=== PATIENT | female | born 1960 | race Caucasian/White ===

== ENCOUNTER → 2017-11-23 07:56 | Outpatient (CLI) | payer OTHER, SELFPAY ==
[2017-11-23 12:18] LABS: ALT 29 U/L (12-78); AST 13 U/L (15-37); Albumin 3.7 g/dL (3.4-5.0); Alkaline Phosphatase 71 U/L (46-116); Anion Gap 6.5 mmol/L (3-11); BUN 20 mg/dL (7-18); Bilirubin, Total 0.5 mg/dL (0.2-1.0); CO2 29.5 mmol/L (21.0-32.0); CREATININE 0.63 mg/dL (0.55-1.02); Calcium 8.9 mg/dL (8.5-10.1); Chloride 104 mmol/L (98-107); Cholesterol 198 mg/dL (50-200); Glucose 98 mg/dL (70-100); HDL Cholesterol 83 mg/dL (40-60); LDL CHOLESTEROL 106 mg/dL (<100); Potassium 4.2 mmol/L (3.5-5.1); Sodium 140 mmol/L (136-145); Total Protein 6.9 g/dL (6.4-8.2); Triglyceride 38 mg/dL (30-150)
== END ==
DX: E78.5 Hyperlipidemia, unspecified (principal); F32.9 Major depressive disorder, single episode, unspecified; F41.9 Anxiety disorder, unspecified
CPT/HCPCS: 36415; 80053; 80061; 83721

== ENCOUNTER → 2017-11-23 11:34 | Outpatient (REF) | payer OTHER, SELFPAY ==
--- NOTE | 2017-11-23 09:30 | PAPFT_PTH ---
PATIENT: Joanna Norton LOC: [facility] U#:[id number] AGE/SX: 65/F ROOM: RE11/23/[address]: DERRICK Leone : 1960 BED: DIS: SPEC #: [id number] RECD: 11/23/17 12:48 STATUS: KATARZYNADeandre REAle #: [id number] REHANA: 11/23/17 09:[address]: Petra Shay DEPT: [facility] Cytology RECD BY: Santa Booker ENTERED: 11/23/17 12:48 SP TYPE: PAPFT OTHR DR: Layne Zavaleta APRN Tissues: 1 - CX/ENDOCX FOR PAP SMEARS Procedures: PAP THIN PREP/UVM Screening Comments: [id number] (UNSATISFACTORY FOR EVALUATION)
== END ==
LOC: LBN 11:34
PROVIDERS: Visit Provider Nurse Practitioner Family
DX: Z12.4 Encounter for screening for malignant neoplasm of cervix (principal); Z11.51 Encounter for screening for human papillomavirus (HPV)
CPT/HCPCS: 88142; 87624

== ENCOUNTER 2017-12-23 08:55 | Outpatient (REF) | payer OTHER, SELFPAY ==
--- NOTE | 2017-12-23 08:30 | PAPFT_PTH ---
PATIENT: Joanna Norton LOC: [facility] U#:[id number] AGE/SX: 57/F ROOM: RE12/23/[address]: DERRICK Leone : 1960 BED: DIS: 12/23/2017 SPEC #: [id number] RECD: 12/23/17 13:12 STATUS: VICKI AJ #: [id number] REHANA: 12/23/17 08:[address]: Petra Shay DEPT: [facility] Cytology RECD BY: Santa Booker ENTERED: 12/23/17 13:13 SP TYPE: PAPFT OTHR DR: Layne Zavaleta APRN Tissues: 1 - CX/ENDOCX FOR PAP SMEARS Procedures: PAP THIN PREP/UVM Screening HPV DNA PROBE Comments: [id number]
== END 2017-12-23 09:15 ==
LOC: LBN 08:55
PROVIDERS: Visit Provider Nurse Practitioner Family
DX: Z12.4 Encounter for screening for malignant neoplasm of cervix (principal); Z11.51 Encounter for screening for human papillomavirus (HPV)
CPT/HCPCS: 88142; 87624

== ENCOUNTER 2018-01-31 08:08 | Outpatient (CLI) | payer OTHER, SELFPAY ==
--- NOTE | 2018-01-31 08:15 | DI.CT_ITS ---
SYMPTOM/DIAGNOSIS: CHECK STONE BURDEN, CALCULUS OF KIDNEY, N20.[address]: CT scan of the abdomen and pelvis was performed according to the renal colic protocol. Comparison examination is 08/31/13. The visualized lung bases are clear. The lack of IV contrast does limit evaluation of the abdominal and pelvic organs. The patient is status post cholecystectomy. No biliary ductal dilatation is seen. The unenhanced liver, spleen, pancreas and adrenal glands are unremarkable. In the right kidney, there is a 2 mm. non obstructing stone in the mid pole. In the lower pole, there is a collection of calculi present, at least 7 individual calculi are identified. They measure in aggregate, 1.2 cm. by 0.8 cm. They are non obstructing. In the left kidney, there is a 2 mm. non obstructing stone in the upper pole. There are two non obstructing stones seen in the mid pole. The larger measuring 0.5 cm., the smaller measuring 0.2 cm. There are three non obstructing stones in the lower pole, the largest measures 0.5 cm. The two smaller measure 0.4 cm and 0.2 cm. No ureterolithiasis is identified. The urinary bladder is intact. No bladder stones are seen. The reproductive organs are unremarkable as visualized. The abdominal aorta is of normal caliber. No significant abdominal or pelvic adenopathy, ascites or pneumoperitoneum is present. The bowel shows no evidence of obstruction or inflammation. No findings to suggest an acute appendicitis are present. There are degenerative changes seen in the spine. IMPRESSION: Bilateral nephrolithiasis.
== END 2018-01-31 08:28 ==
PROVIDERS: Visit Provider Urology
DX: N20.0 Calculus of kidney (principal)
CPT/HCPCS: 74176

== ENCOUNTER 2018-04-05 00:27 | Outpatient (CLI) | payer OTHER, SELFPAY ==
--- NOTE | 2018-04-05 08:16 | DI.MAMMO_ITS ---
SYMPTOM/DIAGNOSIS: SCREENING, Z12.31 MAMMOGRAMS: Mammograms were interpreted according to the usual protocol including computer analysis with CAD system, tomosynthesis and C view imaging. Comparison with prior examinations. Breast density C. No suspicious masses or microcalcifications are seen. There is no definite evidence of malignancy. IMPRESSION: Negative mammogram. Routine screening is recommended. Category I. MQSA ASSESSMENT OF FINDINGS: Negative. Category 1. Patient will receive a letter notifying them of these results. Bi-RADS category C. The breasts are heterogeneously dense, which may obscure small masses.
== END 2018-04-05 00:47 ==
PROVIDERS: Visit Provider Nurse Practitioner Family
DX: Z12.31 Encounter for screening mammogram for malignant neoplasm of breast (principal)
CPT/HCPCS: 77063; 77067

== ENCOUNTER 2018-06-01 14:54 | Outpatient (CLI) | payer OTHER, SELFPAY ==
--- NOTE | 2018-06-01 14:49 | DI.RAD_ITS ---
SYMPTOM/DIAGNOSIS: ACUTE INJURY, PAIN LEFT LITTLE FINGER: Three views. No acute fracture or dislocation is seen. No radiopaque foreign bodies are seen in the soft tissues. IMPRESSION: No acute abnormality.
== END 2018-06-01 15:14 ==
PROVIDERS: Visit Provider Student in an Organized Health Care Education/Training Program
DX: M79.645 Pain in left finger(s) (principal); S69.92XA Unspecified injury of left wrist, hand and finger(s), initial encounter
CPT/HCPCS: 73140

== ENCOUNTER 2018-11-22 10:45 | Outpatient (CLI) | payer OTHER, SELFPAY ==
[2018-11-22 13:39] LABS: ALT 28 U/L (14-59); AST 19 U/L (15-37); Alkaline Phosphatase 78 U/L (46-116); BUN 16 mg/dL (7-18); Bilirubin, Total 0.5 mg/dL (0.2-1.0); CREATININE 0.59 mg/dL (0.55-1.02); Calcium 9.3 mg/dL (8.5-10.1); Chloride 104 mmol/L (98-107); Glucose 89 mg/dL (70-100); Potassium 4.3 mmol/L (3.5-5.1); Sodium 141 mmol/L (136-145); TSH (W/Ref FT4) 1.02 uIU/mL (0.36-3.74); Total Protein 7.5 g/dL (6.4-8.2)
== END 2018-11-22 11:05 ==
DX: F32.9 Major depressive disorder, single episode, unspecified (principal); G47.00 Insomnia, unspecified; R53.83 Other fatigue; Z00.00 Encounter for general adult medical examination without abnormal findings
CPT/HCPCS: 36415; 80053; 84443

== ENCOUNTER 2018-12-06 10:05 | Outpatient (REF) | payer OTHER, SELFPAY ==
--- NOTE | 2018-12-06 09:30 | PAPFT_PTH ---
PATIENT: Joanna Norton LOC: [facility] U#:[id number] AGE/SX: 58/F ROOM: RE12/06/[address]: DERRICK Leone : 1960 BED: DIS: 12/06/2018 SPEC #: [id number] RECD: 12/06/18 12:47 STATUS: VICKI REAle #: [id number] REHANA: 12/06/18 09:[address]: Petra Shay DEPT: [facility] Cytology RECD BY: Santa Booker ENTERED: 12/06/18 12:48 SP TYPE: PAPFT SERGIO DR: Layne Zavaleta APRN Tissues: 1 - CX/ENDOCX FOR PAP SMEARS Procedures: PAP THIN PREP/UVM Screening Comments: [id number]
== END 2018-12-06 10:25 ==
LOC: LBN 10:05
PROVIDERS: Visit Provider Nurse Practitioner Family
DX: Z12.4 Encounter for screening for malignant neoplasm of cervix (principal)
CPT/HCPCS: 88142

== ENCOUNTER 2019-01-25 08:03 | Outpatient (CLI) | payer OTHER, SELFPAY ==
--- NOTE | 2019-01-25 09:12 | DI.RAD_ITS ---
EXAM: XR ABDOMEN FLAT PLATE INDICATION: monitor stone burden, kidney stones, N20.0. COMPARISON: ABDOMEN FLAT PLATE from 08/31/2013 TECHNIQUE: 2D digital imaging was performed. FINDINGS: There is again seen a large stone collection in the inferior pole of the right kidney. There are sto landon again seen in the lower pole of the left kidney. There now appears to be a calcification in the midpole of the left kidney. There are surgical clips in the right upper quadrant of the abdomen like ly reflecting prior cholecystectomy. There is a large amount of stool throughout the colon. IMPRESSION: Bilateral nephrolithiasis.New calcification in the mid pole of the left kidney.
== END 2019-01-25 08:23 ==
PROVIDERS: Visit Provider Urology
DX: N20.0 Calculus of kidney (principal); N28.89 Other specified disorders of kidney and ureter
CPT/HCPCS: 74018

== ENCOUNTER 2019-04-18 01:04 | Outpatient (CLI) | payer BC, SELFPAY ==
--- NOTE | 2019-04-18 07:48 | DI.MAMMO_ITS ---
EXAM: MG MAMMO SCREENING CLINICAL HISTORY: screening TECHNIQUE: Mammograms were interpreted according to the usual protocol including computer analysis w [facility] CAD system, tomosynthesis and C-view imaging. COMPARISON: FINDINGS: Breasts are heterogeneously dense. No dominant mass or clumped microcalcification is identified in e ither breast. Current examination is compared with previous examinations including March 2018 and there has been no gross interval change in appearance in comparison with the previous studies. IMPRESSION: No specific evidence of malignancy at this time. Routine screening examinations are suggested at yea rly intervals in this age group according to the ACS ACR guidelines Category 1, breast density category C
== END 2019-04-18 01:24 ==
PROVIDERS: Visit Provider Nurse Practitioner Family
DX: Z12.31 Encounter for screening mammogram for malignant neoplasm of breast (principal)
CPT/HCPCS: 77063; 77067

== ENCOUNTER 2019-10-02 13:16 | Emergency (ER) | payer BC, SELFPAY ==
[2019-10-02 13:26] VITALS: BP 139/89; PULSE 73; RESP 16; TEMP 36.2; O2SAT 100
[2019-10-02 13:33] LABS: Bilirubin Negative (Negative); Blood Large (Negative); Clarity Cloudy (Clear); Glucose Negative (Negative); Ketones Negative (Negative); Leukocyte Esterase Trace (Negative); Nitrite Negative (Negative); Specific Gravity >= 1.030 (1.005-1.025); Urobilinogen 0.2 EU/dL (Up TO 0.2); pH 5.5 (5-8)
[2019-10-02 13:42] LABS: C & S Indicated? Yes; Epithelial Cells Few HPF (Negative); RBC >50 HPF (0-2)
--- NOTE | 2019-10-02 13:45 | DI.CT_ITS ---
EXAM: CT RENAL COLIC WO CLINICAL HISTORY: LEFT FLANK PAIN. TECHNIQUE: Imaging Protocol: Axial computed tomography images with coronal and sagittal reformatted images were created and reviewed. CONTRAST MATERIAL: Noncontrast COMPARISON: CT CT ABDOMEN PELVIS WO from 01/31/2018 FINDINGS: ABDOMEN: Lung Bases: Normal where visualized. Liver: Normal density. No measurable mass. Gallbladder and biliary tract: Status post cholecystectomy. No radiodense calculus or biliary dilati on. Pancreas: Normal density, no abnormal calcifications or inflammatory process. Spleen: Normal. Kidneys: Normal size, contour and axis. Bilateral renal calculi are again noted, greatest at the lowe r poles. Very faint increased density is seen in the medullary regions of both kidneys, which could i ndicate medullary sponge kidney. There is now moderate left hydronephrosis secondary to a 7 millimet er stone in the upper ureter, just beneath the ureteropelvic junction. No masses seen. Adrenal glands: No masses seen. Abdominal Aorta: Abdominal portion non-dilated. PELVIS: Bladder: Symmetric distention, no gross wall thickening. No stones Bowel: No obstruction or bowel wall thickening. Peritoneal cavity: No ascites, collection or inflammatory response. There is haziness in the mesente leana fat and multiple small lymph nodes, unchanged. Bones: Degenerative disc changes at L5-S1. Schmorl's node at the superior endplate of L4. IMPRESSION: Moderate left hydronephrosis secondary to a 7 millimeter stone in the proximal left ureter. Addition al multiple bilateral renal calculi. RADIATION DOSE DELIVERED: Total DLP DATA REPOSITORY: All CT scans at this facility are submitted to the National Radiology Data Registry (NRDR) Dose Index Registry (DIR) with the [employer] (ACR). RADIATION OPTIMIZATION: All CT scans at this facility use at least one of these dose optimization te chniques: automated exposure control; mA and/or kV adjustment per patient size (includes targeted exa ms where dose is matched to clinical indication); or iterative reconstruction.
--- NOTE | 2019-10-02 14:01 | W.ED.GENAD ---
Discharge Plan Disposition Patient Disposition: HOME Condition: Stable Discharge Details Chief Complaint: FlankPain Clinical Impression: Kidney stone on left side Primary Care Provider: Layne Zavaleta ED Provider: Dori Lindquist Home Meds and New Rx's Prescriptions: New tamsulosin 0.4 mg capsule 0.4 mg PO QHS 7 Days Qty: 7 RF: 0 hydrocodone-acetaminophen 5-325 mg tablet 1 tab PO Q6H PRN (Reason: pain) Qty: 7 RF: 0 No Action cetirizine [Zyrtec] 10 mg tablet 10 mg PO DAILY PRN (Reason: allergy symptoms) Qty: 90 RF: 2 venlafaxine 37.5 mg capsule,extended release 24hr 37.5 mg PO DAILY Qty: 30 RF: 2 Discharge Instructions Instructions: Kidney Stones (ED) Additional Instructions: Strain all urine. Follow-up with Dr. Shine later this week as previously scheduled. Take medications as prescribed. Take hydrocodone with food no driving. Return to the ED immediately for any vomiting, fever, pain not controlled by medications, or any concerns. Referrals: Layne Zavaleta NP [Primary Care Provider] - Travon Shine MD [ [facility] STAFF PHYSICIAN] - Medical Decision Making 59-year-old female presents to the ER complaining of left flank pain which began yesterday worsening today. She reports intermittent in nature and is tolerable upon initial exam. She does have a history of kidney stones and sees Dr. Shine for urology. She states that she has an upcoming appointment on to get a KUB x-ray to evaluate her kidney stones. She has 2 known small passable kidney stones on the left and a large one on the right per patient report. Associated symptoms include nausea, dark urine, and alternating left back pain and left abdominal pain. She denies any fever, chills, vomiting. She took a Tylenol this morning which provided little to no relief. Surgical history includes cholecystectomy, tubal ligation, cataract surgery, past medical history includes anxiety depression, renal calculi, tubular adenoma of colon. 1404: Orders in place including CBC, CMP, urinalysis does show large blood, trace leukocytes, greater than [address] abdomen pelvis without contrast ordered to eval kidney stones. 1 L normal saline ordered and 4 mg Zofran 30 mg Toradol IV. Patient declined Zofran at this time she reports improvement with Toradol IV. 1349: Pulmonary CT results received by Dr. Moody radiologist she reports a 7 mm stone in the left upper ureter with moderate hydro-which is obstructed at this time. Dr. Shine urologist paged. COMPARISON: CT CT ABDOMEN PELVIS WO from 01/31/2018 FINDINGS: ABDOMEN: Lung Bases: Normal where visualized. Liver: Normal density. No measurable mass. Gallbladder and biliary tract: Status post cholecystectomy. No radiodense calculus or biliary dilation. Pancreas: Normal density, no abnormal calcifications or inflammatory process. Spleen: Normal. Kidneys: Normal size, contour and axis. Bilateral renal calculi are again noted, greatest at the lower poles. Very faint increased density is seen in the medullary regions of both kidneys, which could indicate medullary sponge kidney. There is now moderate left hydronephrosis secondary to a 7 millimeter stone in the upper ureter, just beneath the ureteropelvic junction. No masses seen. Adrenal glands: No masses seen. Abdominal Aorta: Abdominal portion non-dilated. PELVIS: Bladder: Symmetric distention, no gross wall thickening. No stones Bowel: No obstruction or bowel wall thickening. Peritoneal cavity: No ascites, collection or inflammatory response. There is haziness in the mesenteric fat and multiple small lymph nodes, unchanged. Bones: Degenerative disc changes at L5-S1. Schmorl's node at the superior endplate of L4. IMPRESSION: Moderate left hydronephrosis secondary to a 7 millimeter stone in the proximal left ureter. Additional multiple bilateral renal calculi. 1504: Spoke with Dr. Shine with urology discussed patient case in details. He states that patient should have an appointment on with him. At this time due to no vomiting and no infection patient is nonseptic appearing she feels it is safe for patient to be discharged home with Flomax and pain medications. I agree with his recommendation at this time. We will send patient home with above-mentioned prescriptions and urine strainer and strict return instructions. HPI General Mode of arrival: ambulatory. Date/Time Provider Initiated Documentation: 10/02/19 13:34. Limitations to Documentation: no limitations. Information obtained by: patient. HPI Narrative: 59-year-old female presents to the ER complaining of left flank pain which began yesterday worsening today. She reports intermittent in nature and is tolerable upon initial exam. She does have a history of kidney stones and sees Dr. Shine for urology. She states that she has an upcoming appointment on to get a KUB x-ray to evaluate her kidney stones. She has 2 known small passable kidney stones on the left and a large one on the right per patient report. Associated symptoms include nausea, dark urine, and alternating left back pain and left abdominal pain. She denies any fever, chills, vomiting. She took a Tylenol this morning which provided little to no relief. Surgical history includes cholecystectomy, tubal ligation, cataract surgery, past medical history includes anxiety depression, renal calculi, tubular adenoma of colon. Related Data Home Medications Medication Instructions Recorded Confirmed cetirizine 10 mg tablet 10 mg PO DAILY PRN #90 tab-cap 12/29/18 10/02/19 venlafaxine 37.5 mg 37.5 mg PO DAILY #30 cap 06/21/19 10/02/19 capsule,extended release 24 hr hydrocodone-acetaminophen 1 tab PO Q6H PRN #7 tab 10/02/19 tamsulosin 0.4 mg PO QHS 7 Days #7 cap 10/02/19 Previous Rx's Medication Instructions Recorded cetirizine 10 mg tablet 10 mg PO DAILY PRN #90 tab-cap 12/29/18 venlafaxine 37.5 mg 37.5 mg PO DAILY #30 cap 06/21/19 capsule,extended release 24 hr hydrocodone-acetaminophen 1 tab PO Q6H PRN #7 tab 10/02/19 tamsulosin 0.4 mg PO QHS 7 Days #7 cap 10/02/19 Allergies Allergy/AdvReac Type Severity Reaction Status Date / Time Sulfa (Sulfonamide Allergy Mild RASH Verified 10/02/19 13:30 Antibiotics) epinephrine Allergy Unknown Verified 10/02/19 13:30 General Stated Complaint: FlankPain FRANCISCA: 3 Review of Systems Narrative: Constitutional: Negative for weight loss, alert and oriented, well groomed, normal body habitus, appears comfortable. HEENT: Denies trauma, headaches, blurry vision, nasal discharge, sore throat, trouble swallowing. Chest: Denies chest pain, palpitations, irregular rhythm, hypertension. Respiratory: Denies Shortness of breath, cough, hemoptysis. GI: Denies abdominal pain, nausea, vomiting, diarrhea, constipation. : Denies dysuria, hematuria, flank pain, rectal bleeding. Neuro: Denies dizziness, blurry vision, weakness, syncope, headache or facial numbness. Hematologic: Denies easy bruising, intolerance to heat or cold, hair loss. [facility] Medical History Anxiety Depression Hx of renal calculi Increased body mass index (BMI) (Acute) Injury of intrinsic muscle of finger (Inactive) Tubular adenoma of colon Surgical History Cataract extraction status, left eye (Resolved ~03/14/18) 03/14/18 [facility] Cholecystectomy Colonoscopy - MAC (04/13/16) Extraction of cataract (~2010) LEFT EYE Ligation of fallopian tube Family History Mother No problems noted. Father Guillain-Pollok Brother Kidney stone Sister No problems noted. Daughter No problems noted. Daughter No problems noted. Social History Smoking/Tobacco Use Status: Never Alcohol Intake: never Drug use: Never Substance use type: does not use Caregiver/Support person: No Household members: spouse Number of Children: 2 Do you need help understanding health information?: Never 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 Pets and animals: cat(s) Sexually active: Yes Do you think of yourself as: straight/heterosexual Current gender identity: female What is your relationship status?: How often do you talk on the phone with friends or family?: once per week How often do you get together with friends or relatives?: decline to answer How often do you attend religious or restoration services?: decline to answer Do you belong to any clubs or organized social groups?: decline to answer Panel score (0-1 are the most socially isolated patients): 1 What type of physical activity do you participate in: decline to answer Duration: decline to answer Frequency: 3-4 times per week Gabby/Sikh: Latter-Day Special gabby needs: No Seatbelt use: always Helmet use: Yes Helmet use: always Drive intox or ride w/intox local [place] truck driver: No Do you feel safe at home: Yes Do you feel safe in your relationship?: Yes Female Reproductive History Menstrual Date of menopause: 03/29/06 History History 4 Para 2 Hx # Term Pregnancies Multiple births Hx # Pregnancies Ectopic pregnancies AB induced Hx Number of Living Children AB spontaneous Exam Narrative Exam Narrative: Constitutional: Alert and oriented x3. Appears stated age. Normal body habitus. Head: Normocephalic, no trauma. Eyes: Pupils PERRLA, Red reflex noted, EOM's intact. Eyelids symmetrical without lesions, discharge, or swelling. ENT: Bilateral TM's WNL, External ear normal to inspection, no mastoid TTP, swelling, or erythema, Nasal turbinates WNL, no nasal discharge. Normal dentition, Posterior pharynx WNL, no exudate. Chest: RRR, Normal S1, S2, distal pulses intact. Resp: Lungs clear to auscultation bilaterally, no wheezes, rales, or rhonchi. Abdomen: Soft nondistended nontender palpation, normoactive bowel sounds all 4 quadrants. No CVA tenderness with palpation. Musculoskeletal: Normal gait, 5/5 strength to all four extremities. Skin: No suspicious rashes or lesions. Capillary refill less than 2 sec. Neurologic: Cranial nerves II-XII intact. Alert and oriented x 3. DTR's intact. Hematologic/Lymphatic: No ecchymosis, no lymphadenopathy. Course Vital Signs Vital signs: Vital Signs Temperature 36.2 C L 10/02/19 13:26 Pulse 73 10/02/19 13:26 Respiratory Rate 16 10/02/19 13:26 Blood Pressure 139/89 10/02/19 13:26 Pulse Oximetry 100 10/02/19 13:26 Temperature 36.2 C L 10/02/19 13:26 Temperature Source Temporal Artery Scan 10/02/19 13:26 Pulse 73 10/02/19 13:26 Respiratory Rate 16 10/02/19 13:26 Respiratory Effort Non-Labored 10/02/19 13:28 Blood Pressure 139/89 10/02/19 13:26 Blood Pressure Position Sitting 10/02/19 13:26 Pulse Oximetry 100 10/02/19 13:26 Oxygen Delivery Method Room Air 10/02/19 13:26 Oxygen Flow Rate 0 10/02/19 13:26 Pain Level 8 10/02/19 13:43 Lab/Test Results Lab/Test Results: 10/02/19 13:23 Urine - Reflex from Ua Urine Culture - Pending Laboratory Tests Range/Units 10/02/19 13:23 Urine Color (Yellow) [place] Urine Clarity (Clear) Cloudy Urine pH (5-8) 5.5 Ur Specific [place] (1.005-1.025) >= 1.030 H Urine Protein (Negative) mg/dL 100 H Urine Ketones (Negative) mg/dL Negative Urine Blood (Negative) Large H Urine Nitrite (Negative) Negative Urine Bilirubin (Negative) Negative Urine Urobilinogen (Up TO 0.2) EU/dL 0.2 Ur Leukocyte Esterase (Negative) Trace H Urine RBC (0-2) HPF >50 H Urine WBC Not Applicable Ur Epithelial Cells (Negative) HPF Few Urine Crystals Not Applicable Urine Bacteria Not Applicable Urine Mucus Not Applicable Ur Culture Indicated? Yes Urine Glucose (Negative) mg/dL Negative
[2019-10-02] MEDS: Ketorolac 30 MG/ML VIAL IVP (14:02)
[2019-10-02] MEDS: Normal Saline 1,000 ML 150 ML IV (14:02)
[2019-10-02] MEDS: Normal Saline Flush 10 ML SYR IVP (14:02)
[2019-10-02 14:06] LABS: Abs Immature Grans 0.02 k/cumm (0.0-0.09); Absolute Basophil Count 0.02 k/cumm (0.0-0.2); Absolute Eosinophil Count 0.06 k/cumm (0.0-0.7); Absolute Lymphocyte Count 2.46 k/cumm (1.2-3.4); Absolute Monocyte Count 0.71 k/cumm (0.11-0.7); Absolute Neutrophil Count 6.62 k/cumm (1.2-6.7); Basophils % 0.2; Eosinophils % 0.6; HCT 41.8 % (36.0-46.0); HGB 14.4 g/dL (12.0-15.5); Immature Grans % 0.2 %; Lymphocytes % 24.9; Mean Corp. HGB Concentration 34.4 g/dL (32.0-36.0); Mean Corpuscular Hemoglobin 29.8 pg (27.0-33.0); Mean Corpuscular Volume 86.4 fL (80-95); Mean Platelet Volume 9.6 fL (8.0-11.0); Monocytes % 7.2; Neutrophils % 66.9; Platelet Count 317 x1000/uL (130-400); RBC 4.84 m/cumm (4.00-5.20); RBC Distribution Width 12.7 % (11.7-14.6); White Blood Cell Count 9.89 k/cumm (4.4-10.8)
[2019-10-02 14:11] LABS: ALT 26 U/L (14-59); AST 16 U/L (15-37); Albumin 4.1 g/dL (3.4-5.0); Alkaline Phosphatase 78 U/L (46-116); Anion Gap 9.1 mmol/L (3-11); BUN 19 mg/dL (7-18); Bilirubin, Total 0.5 mg/dL (0.2-1.0); CO2 25.9 mmol/L (21.0-32.0); CREATININE 0.71 mg/dL (0.55-1.02); Calcium 8.9 mg/dL (8.5-10.1); Chloride 104 mmol/L (98-107); Glucose 98 mg/dL (74-106); Potassium 3.6 mmol/L (3.5-5.1); Sodium 139 mmol/L (136-145); Total Protein 7.7 g/dL (6.4-8.2)
[2019-10-02 15:27] VITALS: BP 144/86; PULSE 63; RESP 18; TEMP 36.1; O2SAT 97
--- NOTE | 2019-10-02 16:30 | NUR.NOTE ---
Nursing Note: referral to sent urology
== END 2019-10-02 15:39 | disposition home or self-care (01) ==
PROVIDERS: Emergency Provider Registered Nurse Emergency
DX: N13.2 Hydronephrosis with renal and ureteral calculous obstruction (principal); R10.32 Left lower quadrant pain; Z87.442 Personal history of urinary calculi
CPT/HCPCS: 36415; 80053; 96361; 96374; 99284; 74176; 81003; 81015; 85025; 87086; J1885

== ENCOUNTER 2019-10-07 06:29 | Emergency (ER) | payer BC, SELFPAY ==
[2019-10-07 06:35] VITALS: BP 116/42; PULSE 66; RESP 18; TEMP 36.8; O2SAT 98
--- NOTE | 2019-10-07 06:48 | ED.GENADUL_ITS ---
Discharge Plan Disposition Patient Disposition: HOME Condition: Good Discharge Details Chief Complaint: FlankPain Clinical Impression: Renal colic on left side Primary Care Provider: Layne Zavaleta ED Provider: Andrew Bains Hines Meds and New Rx's Prescriptions: New ondansetron 4 mg tablet,disintegrating 4 mg PO Q6H PRNQty: 20 RF: 0 Continued cetirizine [Zyrtec] 10 mg tablet 10 mg PO DAILY PRN (Reason: allergy symptoms) Qty: 90 RF: 2 venlafaxine 37.5 mg capsule,extended release 24hr 37.5 mg PO DAILY Qty: 30 RF: 2 tamsulosin 0.4 mg capsule 0.4 mg PO QHS 7 Days Qty: 7 RF: 0 hydrocodone-acetaminophen 5-325 mg tablet 1 tab PO Q6H PRN (Reason: pain) Qty: 7 RF: 0 Discharge Instructions Instructions: Renal Colic (ED) Additional Instructions: Labs remain normal and urine does not appear infected. Use ondansetron as needed for nausea. Use the hydrocodone/acetaminophen for pain. Contact Dr. Shine on Wednesday for follow-up. Continue to strain your urine. Return to ED for uncontrolled pain, fever, persistent vomiting. Referrals: Travon Shine MD [ [facility] STAFF PHYSICIAN] - Medical Decision Making Patient with recurrent pain/renal colic from the known 7 mm stone. Will establish IV and medicate with Zofran, Toradol, morphine. Repeat CBC and chemistry as well as urinalysis. Hold off on repeat imaging for the time being. 8 AM: Patient's pain now under control. White count remains normal. Creatinine remains normal. Urine continues to have blood but no white cells or bacteria. Discussed need for pain control with patient. Will give prescription for Zofran ODT to use for nausea whether it be related to the hydrocodone or pain. Contact Dr. Shine on Wednesday for follow-up. Return to ED for fever, uncontrolled pain, persistent vomiting. Medical Records Medical records reviewed: Yes I reviewed the patient's medical records. Lab Data Lab results reviewed: Yes I reviewed the patient's lab results. HPI General Mode of arrival: ambulatory . Date/Time Provider Initiated Documentation: 10/07/19 06:39 . Limitations to Documentation: no limitations . Information obtained by: patient, RN notes reviewed and old records reviewed . HPI Narrative: Patient presents to ED with left sided abdominal and flank pain. Patient has known 7mm ureteral stone on CT scan done on Wednesday when she presented with flank pain. She was supposed to have followed up with Dr. Shine on per ED note. She reports she did not see Dr. Shine but has spoke to him over the phone this week. She had been doing relatively well and felt like the stone was moving as pain went from back to lower abdomen. This morning developed severe pain radiating back up into the flank with associated nausea. She did not take the hydrocodone/acetaminophen as prescribed due to nausea or inferior vomiting. She has been taking the Flomax. She denies fever. She presents now due to severe pain as well as urinary frequency. Related Data Home Medications Medication Instructions Recorded Confirmed cetirizine 10 mg tablet 10 mg PO DAILY PRN #90 tab-cap 12/29/18 10/07/19 venlafaxine 37.5 mg 37.5 mg PO DAILY #30 cap 06/21/19 10/07/19 capsule,extended release 24 hr hydrocodone-acetaminophen 1 tab PO Q6H PRN #7 tab 10/02/19 10/07/19 tamsulosin 0.4 mg PO QHS 7 Days #7 cap 10/02/19 10/07/19 ondansetron 4 mg PO Q6H PRN #20 tab 10/07/19 Previous Rx's Medication Instructions Recorded cetirizine 10 mg tablet 10 mg PO DAILY PRN #90 tab-cap 12/29/18 venlafaxine 37.5 mg 37.5 mg PO DAILY #30 cap 06/21/19 capsule,extended release 24 hr hydrocodone-acetaminophen 1 tab PO Q6H PRN #7 tab 10/02/19 tamsulosin 0.4 mg PO QHS 7 Days #7 cap 10/02/19 ondansetron 4 mg PO Q6H PRN #20 tab 10/07/19 Allergies Allergy/AdvReac Type Severity Reaction Status Date / Time Sulfa (Sulfonamide Allergy Mild RASH Verified 10/02/19 13:30 Antibiotics) epinephrine Allergy Unknown Verified 10/02/19 13:30 General Stated Complaint: FlankPain FRANCISCA: 3 Review of Systems Narrative: As documented in HPI otherwise negative as below. Const: no fever, chills, weakness Resp: no cough, SOB, pleuritic pain CV: no CP, diaphoresis, edema, syncope GI: no vomiting, diarrhea Neuro: no headache, numbness, focal weakness, confusion PFSH Medical History Anxiety Depression Hx of renal calculi Increased body mass index (BMI) (Acute) Injury of intrinsic muscle of finger (Inactive) Tubular adenoma of colon Surgical History Cataract extraction status, left eye (Resolved ~03/14/18) 03/14/18 [facility] Cholecystectomy Colonoscopy - MAC (04/13/16) Extraction of cataract (~2010) LEFT EYE Ligation of fallopian tube Social History Smoking/Tobacco Use Status: Never Alcohol Intake: never Drug use: Never Substance use type: does not use Caregiver/Support person: No Household members: spouse Number of Children: 2 Do you need help understanding health information?: Never 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 Pets and animals: cat(s) Sexually active: Yes Do you think of yourself as: straight/heterosexual Current gender identity: female What is your relationship status?: How often do you talk on the phone with friends or family?: once per week How often do you get together with friends or relatives?: decline to answer How often do you attend anabaptism or christianity services?: decline to answer Do you belong to any clubs or organized social groups?: decline to answer Panel score (0-1 are the most socially isolated patients): 1 What type of physical activity do you participate in: decline to answer Duration: decline to answer Frequency: 3-4 times per week Gabby/Gnosticist: Temple Special gabby needs: No Seatbelt use: always Helmet use: Yes Helmet use: always Drive intox or ride w/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 Normal vitals and room air pulse ox. Const: WDWN female appears very uncomfortable. HEENT: NC/AT. Normal facial exam. Eyes: Normal conjunctiva and sclera. Neck: Supple. Trachea midline. Lungs: Normal respiratory effort. GI: Soft. NT/ND. Back: No CVAT Neuro: A+O x 3. Normal speech, mentation, gait. Cranial nerves II - XII grossly intact. No gross motor or sensory deficit. Ext: No C/C/E. Skin: Warm and dry. Course Vital Signs Vital signs: Vital Signs Temperature 98.2 F 10/07/19 06:35 Pulse 66 10/07/19 06:35 Respiratory Rate 18 10/07/19 06:35 Blood Pressure 116/42 L 10/07/19 06:35 Pulse Oximetry 98 10/07/19 06:35 Temperature 98.2 F 10/07/19 06:35 Temperature Source Temporal Artery Scan 10/07/19 06:35 Pulse 66 10/07/19 06:35 Respiratory Rate 18 10/07/19 06:35 Respiratory Effort Non-Labored 10/07/19 06:43 Blood Pressure 116/42 L 10/07/19 06:35 Pulse Oximetry 98 10/07/19 06:35 Oxygen Delivery Method Room Air 10/07/19 06:35 Oxygen Flow Rate 0 10/07/19 06:35 Pain Level 8 10/07/19 06:43
[2019-10-07] MEDS: Ketorolac 30 MG/ML VIAL 15 MG IVP (06:59)
[2019-10-07] MEDS: Normal Saline Flush 10 ML SYR IVP (06:59)
[2019-10-07] MEDS: Ondansetron 4 MG/2 ML VIAL IVP (07:00)
[2019-10-07 07:03] LABS: Abs Immature Grans 0.03 k/cumm (0.0-0.09); Absolute Basophil Count 0.03 k/cumm (0.0-0.2); Absolute Eosinophil Count 0.07 k/cumm (0.0-0.7); Absolute Lymphocyte Count 1.87 k/cumm (1.2-3.4); Absolute Monocyte Count 0.72 k/cumm (0.11-0.7); Absolute Neutrophil Count 6.73 k/cumm (1.2-6.7); Basophils % 0.3; Eosinophils % 0.7; HCT 40.4 % (36.0-46.0); HGB 13.7 g/dL (12.0-15.5); Immature Grans % 0.3 %; Lymphocytes % 19.8; Mean Corp. HGB Concentration 33.9 g/dL (32.0-36.0); Mean Corpuscular Hemoglobin 29.1 pg (27.0-33.0); Mean Platelet Volume 9.3 fL (8.0-11.0); Monocytes % 7.6; Neutrophils % 71.3; Platelet Count 319 x1000/uL (130-400); RBC Distribution Width 12.5 % (11.7-14.6); White Blood Cell Count 9.45 k/cumm (4.4-10.8)
[2019-10-07 07:07] LABS: Anion Gap 10.2 mmol/L (3-11); BUN 26 mg/dL (7-18); CO2 26.8 mmol/L (21.0-32.0); CREATININE 0.79 mg/dL (0.55-1.02); Chloride 103 mmol/L (98-107); Glucose 142 mg/dL (74-106); Potassium 3.7 mmol/L (3.5-5.1); Sodium 140 mmol/L (136-145)
[2019-10-07] MEDS: Normal Saline 1,000 ML 1000 ML IV (07:14)
[2019-10-07 07:28] LABS: Clarity Clear (Clear); Glucose Color Interference mg/dL (Negative); Leukocyte Esterase Color Interference (Negative); Nitrite Color Interference (Negative); Specific Gravity 1.018 (1.005-1.025)
[2019-10-07 07:29] LABS: Bilirubin Color Interference (Negative); Blood Color Interference (Negative); Ketones Color Interference mg/dL (Negative); Urobilinogen Color Interference EU/dL (Up TO 0.2)
[2019-10-07 07:33] LABS: Bacteria Few HPF (Negative); C & S Indicated? No; Casts Negative LPF (Negative); Crystals Negative HPF (Negative); Epithelial Cells Few HPF (Negative); Mucus Moderate (Negative); Other Cells Rare Renal (Negative); RBC >50 HPF (0-2)
[2019-10-07 08:09] VITALS: BP 122/83; PULSE 68; RESP 16; TEMP 36.5; O2SAT 96
== END 2019-10-07 08:14 | disposition home or self-care (01) ==
PROVIDERS: Emergency Provider Emergency Medicine
DX: N23 Unspecified renal colic (principal); R11.0 Nausea; R35.0 Frequency of micturition; Z87.442 Personal history of urinary calculi
CPT/HCPCS: 36415; 80048; 96361; 96374; 96375; 99284; 81003; 81015; 85025; J1885; J2405

== ENCOUNTER 2019-10-10 10:28 | Day surgery (SDC) | payer BC, SELFPAY ==
--- NOTE | 2019-10-10 07:03 | W.PM.HP.N ---
Date of service: 10/10/19 Time of Service: 12:53 Assessment and Plan Assessment and plan (1) Left ureteral stone: Status: Acute Assessment and plan: Symptomatically, it sounds as if her stone has migrated to the ureterovesical junction. She has failed outpatient management with poorly controlled pain and multiple emergency room visits. We will move forward with cystoscopy, left retrograde pyelogram, left ureteroscopy with holmium laser lithotripsy and possible stent placement. Depending on the amount of edema that we run into, we may need to place a stent and come back for a second planned/staged procedure. She does have bilateral nonobstructing stones up in her kidneys. She now indicates that she may want these addressed electively. History of Present Illness History of Present Illness Chief Complaint: Left ureteral stone Narrative: This is a 59-year-old woman who has a long history of bilateral kidney stones. She has been treated with ESWL in the past. At that time, she had a stone in the right upper pole. The stone fragmented, but the particles migrated to the right lower pole and have remained there to this time. We had been monitoring her stone burden on a yearly basis. About 2 weeks ago, she began having some left-sided pain. She did not want to come into the office for an appointment, so we did a phone visit. We suggested a KUB to see if any of her stone particles may have migrated. Her pain improved and she believes she passed a stone, so the KUB was never done. She then developed renal colic and was seen in the emergency room about a week ago. On CT scan, she was found to have a left proximal ureteral stone that measured about 7 mm. She had passed multiple left-sided stones in the past, so we treated her conservatively. She did not develop fevers or chills, but she had multiple episodes of recurrent pain. Her most recent recurrence required a trip to the emergency room this weekend. Since then, she feels like the stone has migrated distally and she now has bladder spasms and the feeling of needing to void frequently. With her uncontrolled pain, she presents for urgent stone manipulation. Because of case being done urgently, preop COVID-19 testing has not been completed. Review of Systems Narrative: No fevers or chills No vision change or dysphasia No diabetes or thyroid No shortness of breath, cough or hemoptysis No chest pain or palpitations C/O nausea but no vomiting, hepatitis, ulcers, jaundice, diarrhea or constipation No seizures, strokes or peripheral neuropathy No bleeding disorders or anemia No gout PFSH Social History Smoking/Tobacco Use Status: Former Tobacco Use Quit Date: 03/29/99 Alcohol Intake: current Alcohol Intake frequency: a few times a month Drug use: Never Substance use type: does not use Caregiver/Support person: No Household members: spouse Number of Children: 2 Do you need help understanding health information?: Never 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 Pets and animals: cat(s) Sexually active: Yes Do you think of yourself as: straight/heterosexual Current gender identity: female What is your relationship status?: How often do you talk on the phone with friends or family?: once per week How often do you get together with friends or relatives?: decline to answer How often do you attend confucianism or cheondoism services?: decline to answer Do you belong to any clubs or organized social groups?: decline to answer Panel score (0-1 are the most socially isolated patients): 1 What type of physical activity do you participate in: decline to answer Duration: decline to answer Frequency: 3-4 times per week Gabby/Baptist: Yazdanism Special gabby needs: No Seatbelt use: always Helmet use: Yes Helmet use: always Drive intox 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 Do you feel safe at home: Yes Do you feel safe in your relationship?: Yes Female Reproductive History Menstrual Date of menopause: 03/29/06 History History 4 Para 2 Hx # Term Pregnancies Multiple births Hx # Pregnancies Ectopic pregnancies AB induced Hx Number of Living Children AB spontaneous Meds Home Medications and Allergies Home Medications Medication Instructions Recorded Confirmed Type cetirizine 10 mg tablet 10 mg PO DAILY PRN #90 tab-cap 12/29/18 10/09/19 Rx venlafaxine 37.5 mg 37.5 mg PO DAILY #30 cap 06/21/19 10/10/19 Rx capsule,extended release 24 hr hydrocodone-acetaminophen 1 tab PO Q6H PRN #7 tab 10/02/19 10/10/19 Rx ondansetron 4 mg PO Q6H PRN #20 tab 10/07/19 10/10/19 Rx tamsulosin 0.4 mg PO DAILY 10/10/19 10/10/19 History Allergies Allergy/AdvReac Type Severity Reaction Status Date / Time Sulfa (Sulfonamide Allergy Mild RASH Verified 10/10/19 12:37 Antibiotics) epinephrine Allergy Unknown Verified 10/10/19 12:37 Exam Const General: cooperative and well developed Neck Neck: supple Resp Effort & Inspection: normal respiratory effort Auscultation: clear to auscultation bilaterally Cardio Rate: regular rate Rhythm: regular rhythm GI Palpation: soft and no masses Neuro General: patient alert, patient awake and patient oriented x3 COVID-19 Screening Have you,or household,traveled outside [place] in last 14 days?: No Had IN PERSON contact w/suspected or confirmed C-19 person: No
[2019-10-10 12:31] VITALS: BP 133/84; PULSE 77; RESP 17; TEMP 36.6; O2SAT 99
[2019-10-10] MEDS: Lactated Ringers 1,000 ML 80 ML IV (13:05)
[2019-10-10] MEDS: ceFAZolin 1 GM/50 ML BAG IVPB (13:50)
[2019-10-10] MEDS: Lidocaine 2% Jelly 6 ML SYR (13:55)
[2019-10-10] MEDS: Omnipaque 300 MG/ML 50 ML BTL (14:00)
--- NOTE | 2019-10-10 14:25 | W.PM.DSUDISC ---
Discharge Plan Disposition Patient Disposition: HOME Condition: Stable Discharge Details Reason For Visit: KIDNEY STONE Attending Provider: Travon Shine Primary Care Provider: Layne Zavaleta Home Meds and New Rx's Prescriptions: No Action cetirizine [Zyrtec] 10 mg tablet 10 mg PO DAILY PRN (Reason: allergy symptoms) Qty: 90 RF: 2 venlafaxine 37.5 mg capsule,extended release 24hr 37.5 mg PO DAILY Qty: 30 RF: 2 ondansetron 4 mg tablet,disintegrating 4 mg PO Q6H PRNQty: 20 RF: 0 tamsulosin 0.4 mg capsule 0.4 mg PO DAILY RF: 0 hydrocodone-acetaminophen 5-325 mg tablet 1 tab PO Q6H PRN (Reason: pain) Qty: 7 RF: 0 Discharge Instructions Additional Instructions: Followup 2 to 3 days for stent removal - tell my office staff there is a string on her stent Followup appt with me 4 to 6 weeks with renal ultrasound same day No need to strain urine Activity:: Activity as Tolerated Shower/Bathe:: 24 hours Diet:: As Tolerated Discharge Orders Discharge Orders: Discharge Order (Routine); Ordered 10/10/19 Ordered By: Travon Shine DS: Diagnosis Discharge Diagnosis (1) Left ureteral stone: Status: Acute
--- NOTE | 2019-10-10 14:26 | DI.RAD_ITS ---
EXAM: XR RETROGRADE IN OR CLINICAL HISTORY: Cysto, retrograde COMPARISON: No exams were available for comparison FINDINGS: C-arm fluoroscopy was utilized by Dr. Shine during cystoscopy and retrograde ureterography. Hard copi es show stent placement on the left. Fluoro time, 25.6 seconds.
[2019-10-10 14:30] VITALS: BP 121/80; PULSE 76; RESP 18; TEMP 36; O2SAT 100
--- NOTE | 2019-10-10 14:30 | W.PM.OP ---
Date of service: 10/10/19 Time of Service: 14:30 Operative Note Operative Note DATE OF PROCEDURE: 10/10/19 PRE-OP DIAGNOSIS: Left ureteral stone POST-OP DIAGNOSIS: same PROCEDURE: Cystoscopy, left retrograde pyelogram, left ureteral dilation, left ureteroscopy with stone extraction, insert left ureteral stent SURGEON: Travon Shine ANESTHESIA: spinal ESTIMATED BLOOD LOSS: 7 PATHOLOGY: other (Stone for chemical analysis) COMPLICATIONS: None Patient was transported to: PACU Implants: 4.8 Persian by 22 to 30 cm ureteral stent Indications: This is a 59-year-old woman who has a history of bilateral kidney stones. She has had ESWL for a large stone on the right. She has passed multiple stones on the left. She has never required ureteroscopy. She presented to the emergency room with a renal colic. She is found to have a left 7 mm proximal ureteral stone. She failed outpatient management due to poor pain control. She presents now for stone manipulation. Findings: 2 stones just within the left ureterovesical junction Procedure Description: The patient was brought to the operating room on 10/10/2019. She was given a dose of preoperative IV antibiotics. After successful induction of spinal anesthesia she was placed in the dorsal lithotomy position. Her genitalia was prepped and draped sterilely. 2% Xylocaine jelly was instilled into the urethra to act as a local anesthetic. A 22 Persian rigid cystoscope was passed through the urethra into the bladder. The bladder was inspected using a 30 degree lens. The right ureteral orifice appeared normal. The left orifice was a bit more edematous. The left orifice was cannulated and a retrograde film was obtained by injecting Omnipaque through the access catheter under fluoroscopic guidance. This outlined a filling defect just within the ureteral orifice. The remainder of the ureter above this filling defect was quite dilated. I was able to maneuver a Glidewire through the access catheter and the ureter. I then remove the access catheter leaving the wire in place. Initial attempts at passing a semirigid ureteroscope up the left ureter were not successful. I was able to see a stone impacted in the ureteral orifice, but I was unable to maneuver the scope above the level of the stone. We then removed the scope and passed a UroMax balloon over the indwelling wire. We dilated the distal ureter and remove the balloon. I was then able to maneuver the scope into the distal ureter. We then identified 2 different stone fragments. Each was grasped and a Vashti stone basket and removed in its entirety. Each stone fragment was sent to pathology for chemical analysis. Because of the ureteral dilation we decided to place a ureteral stent. We chose a 4.8 Persian variable length stent and advanced it over the wire. The proximal end of the stent was seen in the calyces of the left kidney and the distal and was seen within the bladder. The safety string was left in place and brought through the urethra. The safety string was then tucked into the patient's vaginal cavity. The positioning of the stent was confirmed both fluoroscopically and cystoscopically. The patient tolerated this procedure well with no complications.
[2019-10-10 14:35] VITALS: BP 134/74; PULSE 75; RESP 18; TEMP 36; O2SAT 100
[2019-10-10 14:40] VITALS: BP 132/78; PULSE 72; RESP 13; TEMP 36; O2SAT 98
[2019-10-10 14:55] VITALS: BP 138/67; PULSE 69; RESP 17; TEMP 36.2; O2SAT 97
[2019-10-10 15:37] VITALS: BP 127/79; PULSE 58; RESP 16; TEMP 36.4; O2SAT 96
[2019-10-10] MEDS: Phenazopyridine 200 MG TAB PO (15:41)
[2019-10-13 17:34] LABS: Source: Left Ureter
== END 2019-10-10 16:42 | disposition home or self-care (01) ==
PROVIDERS: Visit Provider Urology
PROC: (CPT 52352; principal; 2019-10-10 12:00)
DX: N20.1 Calculus of ureter (principal); Z87.442 Personal history of urinary calculi; N13.5 Crossing vessel and stricture of ureter without hydronephrosis
CPT/HCPCS: 52352; 52332; 52344; NC; 74420; 82365; J0690; J1885; J2001; J2250; J2405; Q9967

== ENCOUNTER 2019-11-08 02:08 | Outpatient (CLI) | payer BC, SELFPAY ==
--- NOTE | 2019-11-08 06:30 | DI.US_ITS ---
EXAM: US RENAL CLINICAL HISTORY: r/o hydronephrosis after ureteroscopy,lt ureteral stone,n20.1 TECHNIQUE: Ultrasound performed using standard protocol. COMPARISON: US PELVIS TRANSVAG from 11/20/[address] RENAL COLIC WO from 10/02/2019 FINDINGS: The kidneys are normal in size and shape. There is no hydronephrosis. Ureteral jets are noted bilat erally. There are bilateral lower pole nonobstructing renal calculi, on the right measuring roughly 14 millim eters in diameter and on the left measuring roughly 5 millimeters in diameter. Pre and postvoid urinary bladder volume measurements 153 cc and 0 cc respectively. IMPRESSION: Bilateral nonobstructing renal calculi. No evidence of hydronephrosis at this time. Ureteral jets were seen bilaterally in the urinary bladder. DATA REPOSITORY:
== END 2019-11-08 02:28 ==
PROVIDERS: Visit Provider Urology
DX: N20.2 Calculus of kidney with calculus of ureter (principal)
CPT/HCPCS: 76770

== ENCOUNTER 2019-12-25 09:09 | Outpatient (REF) | payer BC, SELFPAY ==
--- NOTE | 2019-12-25 08:30 | PAPFT_PTH ---
PATIENT: Joanna Norton LOC: N U#:[id number] AGE/SX: 59/F ROOM: RE12/25/[address]: DERRICK Leone : 1960 BED: DIS: 12/25/2019 SPEC #: [id number] RECD: 12/25/19 13:06 STATUS: VICKI REAle #: [id number] REHANA: 12/25/19 08:[address]: Petra Shay DEPT: [facility] Cytology RECD BY: Santa Booker ENTERED: 12/25/19 13:06 SP TYPE: PAPFT OTHR DR: Layne Zavaleta APRN Tissues: 1 - CX/ENDOCX FOR PAP SMEARS Procedures: PAP THIN PREP/[facility] Screening HPV DNA PROBE Comments: [id number]
== END 2019-12-25 09:29 ==
LOC: LBN 09:09
PROVIDERS: Visit Provider Nurse Practitioner Family
DX: Z12.4 Encounter for screening for malignant neoplasm of cervix (principal); Z11.51 Encounter for screening for human papillomavirus (HPV)
CPT/HCPCS: 88142; 87624

== ENCOUNTER 2020-02-26 00:33 | Outpatient (CLI) | payer BC, SELFPAY ==
--- NOTE | 2020-02-26 09:05 | DI.RAD_ITS ---
EXAM: XR CERVICAL SPINE COMP 4-5V CLINICAL HISTORY: neck pain s/p fall,M54.2,CERVICALAGIA. TECHNIQUE: 2D digital imaging was performed. COMPARISON: No exams were available for comparison FINDINGS: There is no evidence of fracture, listhesis, nor offset of the spinolaminar line. There is chronic-t ype disc space narrowing at C6-7 level with small bilateral Luschka joint osteophytes evident at this level. Degenerative changes are noted in the facet joints, most evident at C5-6 level. There are n o cervical ribs. No osseous lesions. IMPRESSION: Degenerative disc disease. No obvious fractures nor listhesis. Facet arthropathy. DATA REPOSITORY: RADIATION DOSE DELIVERED:
--- NOTE | 2020-02-26 09:42 | DI.CT_ITS ---
EXAM: CT HEAD WO CLINICAL HISTORY: head injury,S09.90XA. TECHNIQUE: Imaging Protocol: Axial computed tomography images with coronal and sagittal reformatted images were created and reviewed COMPARISON: No exams were available for comparison FINDINGS: There are no skull fractures nor fluid the visualized paranasal sinuses and mastoid air cells. There is no evidence of intracranial hemorrhage, mass effect, or shift of midline structures. There are no extra-axial fluid collections. Ventricles are not enlarged or shifted and there is no blood w ithin the ventricular system nor within the basal cisterns. There is symmetric bifrontal atrophy caity dent. IMPRESSION: No acute intracranial process.Bifrontal atrophy noted. RADIATION DOSE DELIVERED: 697.22mGy.cm Total DLP DATA REPOSITORY: All CT scans at this facility are submitted to the National Radiology Data Registry (NRDR) Dose Index Registry (DIR) with the [employer] (A[employer]). RADIATION OPTIMIZATION: All CT scans at this facility use at least one of these dose optimization te chniques: automated exposure control; mA and/or kV adjustment per patient size (includes targeted exa ms where dose is matched to clinical indication); or iterative reconstruction.
== END 2020-02-26 00:53 ==
PROVIDERS: Visit Provider Nurse Practitioner Family
DX: S09.90XA Unspecified injury of head, initial encounter (principal); M54.2 Cervicalgia; M47.812 Spondylosis without myelopathy or radiculopathy, cervical region
CPT/HCPCS: 70450; 72050

== ENCOUNTER 2020-04-03 02:40 | Outpatient (CLI) | payer BC, SELFPAY ==
--- NOTE | 2020-04-03 08:30 | DI.RAD_ITS ---
EXAM: XR ABDOMEN FLAT PLATE CLINICAL HISTORY: MONITOR KNOWN STONES, N20.0. TECHNIQUE: 2D digital imaging was performed. COMPARISON: CR XR ABDOMEN FLAT PLATE from 01/25/2019 FINDINGS: Again noted is prominent calcification-calculus in the right kidney middle pole and smaller calculi i n the inferior pole of left kidney. Surgical clips in the right upper quadrant from prior cholecyste ctomy again noted. Small symmetrical densities in both sides of the pelvis are probably related to t ubal ligation surgery. IMPRESSION: Persistent bilateral nephrolithiasis as described above. There are no obvious radiopaque calculi see n along the course of the ureters. DATA REPOSITORY: RADIATION DOSE DELIVERED:
== END 2020-04-03 03:00 ==
PROVIDERS: Visit Provider Urology
DX: N20.0 Calculus of kidney (principal)
CPT/HCPCS: 74018

== ENCOUNTER 2020-04-24 01:07 | Outpatient (CLI) | payer BC, SELFPAY ==
--- NOTE | 2020-04-24 07:30 | DI.MAMMO_ITS ---
EXAM: MAMMO SCREENING CLINICAL HISTORY: screening TECHNIQUE: Mammograms were interpreted according to the usual protocol including computer analysis w [employer] CAD system, tomosynthesis and C-view imaging. COMPARISON: 2010 through 2019 FINDINGS: The breasts are composed of heterogeneously dense fibroglandular densities, Breast Density category C . No suspicious masses or suspicious microcalcifications are seen. No skin thickening or abnormal axillary lymph nodes are seen. There has been no significant change from prior exams. IMPRESSION: BI-RADS Category 1, Negative mammogram. Yearly screening mammography is recommended. Breast Density Category C, heterogeneously Dense. The mammogram demonstrates the patient's breast tissue is dense. Dense breast tissue is very common a nd is not abnormal but dense breast tissue can make it harder to find cancer on a mammogram. Also, de nse breast tissue may increase breast cancer risk. This information about the result of the mammogram report was provided to the patient to raise their awareness. Use this report when you speak with the patient about their risks for breast cancer, which includes their family history. At that time, you may recommend additional screening tests (Ultrasound or MRI) as they might be useful based on their r isk. A negative radiographic report should not delay biopsy if a dominant or clinically suspicious mass is present. Up to ten percent of cancers are not identified on mammography. A negative report may reinforce clinical impression. Adenosis and dense breasts may obscure an underlying neoplasm. False positive reports average 6 to 10%.
== END 2020-04-24 01:27 ==
PROVIDERS: Visit Provider Nurse Practitioner Family
DX: Z12.31 Encounter for screening mammogram for malignant neoplasm of breast (principal)
CPT/HCPCS: 77063; 77067

== ENCOUNTER 2020-07-30 00:54 | Outpatient (CLI) | payer BC, SELFPAY ==
--- NOTE | 2020-07-30 06:15 | DI.RAD_ITS ---
Exam(s) XR ABDOMEN FLAT PLATE EXAM: 2D digital imaging was performed. CLINICAL HISTORY: moniter known KIDNEY STONES,N20.0. COMPARISON: CR XR ABDOMEN FLAT PLATE from 04/03/2020 TECHNIQUE: Supine views of the abdomen performed. FINDINGS: BOWEL GAS PATTERN: Nondistended. There is a moderate amount of retained stool in the colon. CALCIFICATIONS: Small densities are again seen in the lower pole of the left kidney a which appears s table. The inferior pole of the right kidney is largely obscured. The collections of stones in the lower pole are again seen. No other urinary tract calculi are identified. OSSEOUS STRUCTURES: Normal for age. OTHER FINDINGS: There are surgical clips in the right upper quadrant of the abdomen which may reflect prior cholecystectomy. IMPRESSION: 1. Nonobstructive bowel gas pattern. 2. Stable bilateral nephrolithiasis. DATA REPOSITORY: RADIATION DOSE DELIVERED:
== END 2020-07-30 01:14 ==
PROVIDERS: Visit Provider Urology
DX: N20.0 Calculus of kidney (principal); K59.09 Other constipation
CPT/HCPCS: 74018

== ENCOUNTER 2020-11-29 01:48 | Outpatient (CLI) | payer BC, SELFPAY ==
[2020-11-29 13:05] LABS: ALT 48 U/L (14-59); AST 20 U/L (15-37); Alkaline Phosphatase 106 U/L (46-116); Anion Gap 11.6 mmol/L (3-11); BUN 22 mg/dL (7-18); Bilirubin, Total 0.4 mg/dL (0.2-1.0); CO2 24.4 mmol/L (21.0-32.0); CREATININE 0.7 mg/dL (0.55-1.02); Calcium 9.3 mg/dL (8.5-10.1); Chloride 105 mmol/L (98-107); Glucose 92 mg/dL (74-106); Potassium 4.4 mmol/L (3.5-5.1); Sodium 141 mmol/L (136-145); Total Protein 7.2 g/dL (6.4-8.2)
== END 2020-11-29 01:49 | disposition home or self-care (01) ==
LOC: LOS 01:49
DX: Z00.00 Encounter for general adult medical examination without abnormal findings (principal); F32.9 Major depressive disorder, single episode, unspecified
CPT/HCPCS: 36415; 80053

== ENCOUNTER 2021-01-09 17:43 | Outpatient (REF) | payer BC, SELFPAY ==
[2021-01-11 13:19] LABS: COVID-19 RT-PCR UVMMC Result Positive (Negative)
== END 2021-01-09 17:44 | disposition home or self-care (01) ==
LOC: LBN 17:43
PROVIDERS: Visit Provider Physician Assistant
DX: Z20.822 Contact with and (suspected) exposure to COVID-19 (principal); J02.9 Acute pharyngitis, unspecified
CPT/HCPCS: U0003; 87070

== ENCOUNTER 2021-01-23 09:46 | Outpatient (REF) | payer BC, SELFPAY ==
--- NOTE | 2021-01-23 08:45 | PAPFT_PTH ---
PATIENT: Joanna Norton LOC: [facility] U#:[id number] AGE/SX: 60/F ROOM: RE01/23/[address]: DERRICK Leone : 1960 BED: DIS: 01/23/2021 SPEC #: [id number] RECD: 01/23/21 12:55 STATUS: VICKI REAle #: [id number] REHANA: 01/23/21 08:[address]: Petra Shay DEPT: [facility] Cytology RECD BY: Santa Booker ENTERED: 01/23/21 12:56 SP TYPE: PAPFT OTHR DR: Layne Zavaleta APRN Tissues: 1 - CX/ENDOCX FOR PAP SMEARS Procedures: PAP THIN PREP/UVM Screening HPV DNA PROBE Comments: [id number]
== END 2021-01-23 09:47 | disposition home or self-care (01) ==
LOC: LBN 09:46
PROVIDERS: Visit Provider Nurse Practitioner Family
DX: Z12.4 Encounter for screening for malignant neoplasm of cervix (principal); Z11.51 Encounter for screening for human papillomavirus (HPV)
CPT/HCPCS: 88142; 87624

== ENCOUNTER 2021-04-25 01:38 | Outpatient (CLI) | payer BC, SELFPAY ==
--- NOTE | 2021-04-25 07:30 | DI.MAMMO_ITS ---
Exam(s) MAMMO SCREENING EXAM: MAMMO SCREENING CLINICAL HISTORY: screening TECHNIQUE: Bilateral full field digital CC and MLO mammographic images were obtained with 3D tomosyn thesis and utilizing computer aided detection (CAD). COMPARISON: Available for comparison. FINDINGS: Masses/Architectural Distortion: None seen. Microcalcifications: No suspicious pleomorphic-type are seen. Skin Thickening/Nipple Retraction: None. IMPRESSION: 1. No significant interval change with no specific features of malignancy noted. 2. Unless there is more urgent need, screening mammography is recommended, as per [place] [employer] guidelines. BI-RADS Category 1 - Negative Breast Density - Category C - Heterogeneously dense Breast density category C or D implies that the patient has dense breast tissue. Dense breast tissue is very common and is not abnormal but dense breast tissue can make it harder to find cancer on a ma mmogram. Also, dense breast tissue may increase their breast cancer risk. This information about the result of the mammogram report was provided to the patient to raise their awareness. Use this report when you speak with the patient about their risks for breast cancer, which includes their family hist ory. At that time, you may recommend for more screening tests (Ultrasound or MRI) as they might be us eful based on their risk. A negative radiographic report should not delay biopsy if a dominant or clinically suspicious mass is present. Up to ten percent of cancers are not identified on mammography. A negative report may reinforce clinical impression. Adenosis and dense breasts may obscure an underlying neoplasm. False positive reports average 6 to 10%. Patient will receive a letter notifying them of these results.
== END 2021-04-25 01:58 ==
PROVIDERS: Visit Provider Nurse Practitioner Family
DX: Z12.31 Encounter for screening mammogram for malignant neoplasm of breast (principal)
CPT/HCPCS: 77063; 77067

== ENCOUNTER 2021-04-29 00:23 | Outpatient (CLI) | payer BC, SELFPAY ==
--- NOTE | 2021-04-29 06:45 | DI.RAD_ITS ---
Exam(s) XR ABDOMEN FLAT PLATE EXAM: 2D digital imaging was performed. CLINICAL HISTORY: f/u kidney stone,n20.0. COMPARISON: CR XR ABDOMEN FLAT PLATE from 07/30/2020 TECHNIQUE: Supine views of the abdomen performed. FINDINGS: BOWEL GAS PATTERN: Nondistended. CALCIFICATIONS: The calcifications overlying both lower poles of the kidneys are stable. No other ur inary tract calculi are identified. Phleboliths are seen in the pelvis. OSSEOUS STRUCTURES: Normal for age. OTHER FINDINGS: The lung bases are clear. IMPRESSION: 1. Nonobstructive bowel gas pattern. 2. Stable bilateral nephrolithiasis. DATA REPOSITORY: RADIATION DOSE DELIVERED:
== END 2021-04-29 00:43 ==
PROVIDERS: Visit Provider Urology
DX: N20.0 Calculus of kidney (principal)
CPT/HCPCS: 74018

== ENCOUNTER 2021-05-01 10:48 | Outpatient (REF) | payer BC, SELFPAY ==
[2021-05-01 13:00] LABS: Clarity Cloudy (Clear)
[2021-05-01 13:03] LABS: Specific Gravity 1.016 (1.005-1.025)
[2021-05-01 13:09] LABS: WBC 20-50 HPF (0-5)
[2021-05-01 13:10] LABS: Bacteria Few HPF (Negative); C & S Indicated? Yes; Casts Negative LPF (Negative); Crystals Negative HPF (Negative); Epithelial Cells Few HPF (Negative); Mucus Negative (Negative)
== END 2021-05-01 10:49 | disposition home or self-care (01) ==
LOC: LBN 10:48
PROVIDERS: Visit Provider Physician Assistant
DX: N39.0 Urinary tract infection, site not specified (principal)
CPT/HCPCS: 81003; 81015; 87086

== ENCOUNTER 2021-09-17 02:02 | Outpatient (CLI) | payer BC, SELFPAY ==
[2021-09-17 12:12] LABS: Source Nasal/Nares
[2021-09-17 15:47] LABS: COVID-19 PCR Negative (Negative)
== END 2021-09-17 02:03 | disposition home or self-care (01) ==
PROVIDERS: Visit Provider Podiatrist
DX: Z20.822 Contact with and (suspected) exposure to COVID-19 (principal); Z01.818 Encounter for other preprocedural examination
CPT/HCPCS: 87635

== ENCOUNTER 2021-09-19 09:39 | Day surgery (SDC) | payer BC, SELFPAY ==
--- NOTE | 2021-09-18 19:44 | HPE_ITS ---
Date of service: 09/19/21 History of Present Illness History of Present Illness Chief Complaint: hallux limitus deformity, symptomatic hardware left foot Narrative: 61 YO female with progressive pain associated with dorsal spurring about the left 1st mpj and retained screws that are causing discomfort in shoe gear and interfering with daily activity and work. 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 Father Guillain-[place] Brother Kidney stone Sister No problems noted. Daughter No problems noted. Daughter No problems noted. Social History Smoking/Tobacco Use Status: Former Tobacco Use tobacco type: cigarettes Quit Date: 03/29/91 Second Hand Exposure: No Smoking risk assessment performed?: Yes Alcohol Intake: current Alcohol Intake frequency: a few times a month Alcohol type: wine Drug use: Never Substance use type: does not use Counseling given: No Counseling provided: none Number of Children: 2 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 Pets and animals: cat(s) Sexually active: Yes Do you think of yourself as: straight/heterosexual Current gender identity: female What is your relationship status?: How often do you talk on the phone with friends or family?: once per week How often do you get together with friends or relatives?: once per week How often do you attend synagogue or restorationist services?: 1-3 times per year Do you belong to any clubs or organized social groups?: yes Panel score (0-1 are the most socially isolated patients): 2 What type of physical activity do you participate in: walking Duration: 30-45 minutes/day Frequency: 5-6 times per week Gabby/Samaritan: Pentecostal Seatbelt use: always Helmet use: Yes Helmet use: always Drive intox or ride w/intox spike driver: No Do you feel safe at home: Yes Do you feel safe in your relationship?: Yes Female Reproductive History Menstrual Date of menopause: 03/29/06 History History 4 Para 2 Hx # Term Pregnancies Multiple births Hx # Pregnancies Ectopic pregnancies AB induced Hx Number of Living Children AB spontaneous Meds Allergies and Home Medications Allergies Allergy/AdvReac Type Severity Reaction Status Date / Time Sulfa (Sulfonamide Allergy Mild RASH Verified 09/18/21 15:12 Antibiotics) epinephrine Allergy Unknown Verified 09/18/21 15:12 Home Medications Medication Instructions Recorded Confirmed Type venlafaxine 37.5 mg 75 mg PO DAILY #180 caps 05/23/21 09/18/21 Rx capsule,extended release 24 hr Exam Narrative Exam Narrative: 61 YO female in NAD. Heads Normo cephalic EYES PERRLA Hearing is adequate Heart has RRR, no gallops, rubs or murmurs noted Lung brown are clear Abdomen is soft, BS x 4, nontender Peripheral puses are palpable, no edema, calves are soft to palpation Dorsal spurring with marked limitation in motion noted about the left 1st MPJ. Michelle articular tenderness is noted. Impressions: Hallux Limitus, left Retained symptomatic hardware 1st ray left foot Plan: Joanna is being brought to the OR for a Cheilectomy type bunionectomy with removal of retained hardware. Risks and complications were discussed. The possibility of pain, scarring, infection, nerve injury and failure to thrive discussed. All questions were answered in detail. Informed consent obtained. No promises made.
--- NOTE | 2021-09-19 06:25 | W.ANESPRE ---
General Info Date of Service Date Performed: 09/19/21 Height: 5 ft 8 in Weight: 85.275 kg Body Mass Index (BMI): 28.5 Surgical Procedure: Operation Date: 09/19/21 10:10 Proposed Procedure Side Surgeon p Cheilectomy 1st MPJ Left Darrian Yan DPM Meds Allergies and Home Medications Allergies Allergy/AdvReac Type Severity Reaction Status Date / Time Sulfa (Sulfonamide Allergy Mild RASH Verified 09/19/21 10:01 Antibiotics) epinephrine Allergy Unknown Verified 09/19/21 10:01 Home Medication Medication Instructions Recorded venlafaxine 37.5 mg 75 mg PO DAILY #180 caps 05/23/21 capsule,extended release 24 hr Current Visit Medications: Current Medications Generic Name Dose Route Start Last Admin Trade Name Freq PRN Reason Stop Dose Admin Sodium Chloride 500 mls @ 0 mls/hr 09/19/21 06:00 Saline 500ml Bag IV PRN PRN As Directed Cefazolin Sodium/Dextrose 2 gm in 50 mls @ 100 mls/hr 09/19/21 06:00 Ancef Duplex IVPB PREOP [facility] Ringer's Solution 1,000 mls @ 80 mls/hr 09/19/21 06:00 IV 10/18/21 23:59 INFUSION [facility] IV Miscellaneous Supplies 1 each 09/19/21 06:00 Iv Access IV DIRECTED [facility] IV Miscellaneous Supplies 1 each 09/19/21 06:00 Iv Access IV 10/18/21 23:59 DIRECTED KEENAN Povidone Iodine 0 ml 09/19/21 06:00 Povidone-Iodine Soln. 118 Ml Btl TP DIRECTED KEENAN Sodium Chloride 0 ml 09/19/21 06:00 Normal Saline Flush 10 Ml Syr IVP PRN PRN Sodium Chloride 0 ml 09/19/21 06:00 Normal Saline Flush 10 Ml Syr IV 10/18/21 23:59 PRN PRN Sodium Chloride 0 ml 09/19/21 06:00 Normal Saline 10 Ml Vial IJ 10/18/21 23:59 DIRECTED PRN Sterile Water 0 ml 09/19/21 06:00 Water,Injection,Sterile 10 Ml Vial IJ 10/18/21 23:59 DIRECTED PRN PFSH Active Problems Active Problems: Problem Status Onset Code Otitis externa H60.90 Immunization due Z23 Encounter for annual physical exam Z00.00 Left ureteral stone N20.1 Anxiety 07/16/15 F41.9 Depressive disorder 09/08/11 F32.9 Kidney stones 07/16/15 N20.0 Tubular adenoma of colon 04/13/16 D12.6 Varicose veins of right lower extremity I83.91 Increased body mass index (BMI) R63.8 Medical History Medical History Anxiety Depression Hx of renal calculi Injury of intrinsic muscle of finger Tubular adenoma of colon Medical History Comments:: Pt. stated she woke up from her colonoscopy (Recieved 269mg propofol), and gets sick from any anesthesia (of note it was a lap sade surgery...) Surgical History Surgical History Cataract extraction status, left eye (~03/14/18) 03/14/18 [facility] Cholecystectomy Colonoscopy - MAC (04/13/16) Extraction of cataract (~2010) LEFT EYE Hx of foot surgery left Ligation of fallopian tube Tobacco Smoking/Tobacco Use Status: Former Tobacco Use Passive smoking exposure: No Second hand exposure: No Alcohol Alcohol Intake: current Alcohol intake frequency: a few times a month Alcohol type: wine Substance Use Substance use: Never Substance use type: does not use Counseling provided: none Prental History History 4 Para 2 Hx # Term Pregnancies Multiple births Hx # Pregnancies Ectopic pregnancies AB induced Hx Number of Living Children AB spontaneous Vital Signs and Lab Results Vital Signs Most Recent Vital Signs in EMR: Temp Pulse Resp BP Pulse Ox 36.9 C 80 17 120/78 98 09/19/21 10:01 09/19/21 10:01 09/19/21 10:01 09/19/21 10:01 09/19/21 10:01 Lab Results Blood Type / Crossmatch: No Data to Display Complete Blood Count: No Data to Display Complete Metabolic Panel: No Data to Display Liver Function Panel: No Data to Display Coagulation Panel: No Data to Display Cardiac Panel: No Data to Display Arterial Blood Gas: No Data to Display Venous Blood Gas: No Data to Display Pancreas Panel: No Data to Display Thyroid Panel: No Data to Display Infectious Disease: Coronavirus (COVID-19)(PCR) Negative (Negative) 09/17/21 07:00 Coronavirus 2019 Source Nasal/Nares 09/17/21 07:00 Blood Cultures: No Data to Display Toxicology Panel: No Data to Display Anesthesia Assessment and Plan Anesthesia History Personal History: PONV and Awareness Under Anesthesia Family History: No Family History of Anesthesia Complications Exercise Tolerance Exercise Tolerance: Metabolic Equivalents>4 Cardiac & Pulmonary Exam Cardiac Exam: Normal S1/S2 Heart Sounds Pulmonary Exam: Clear Bilateral Breath Sounds Implantable Cardiac Device Does patient have a Pacemaker or an ICD?: No Airway Exam Known Difficult Airway: No Mallampati Class: 3 Mouth Opening: Narrow (< 3cm) Thyromental Distance: Greater than 3 cm Neck Range of Motion: Full ROM Neck Circumference: Normal Teeth Condition: Normal Dentition ASA Classification ASA Score: ASA 2 Emergency Case?: No NPO Status NPO Status: NPO Clears >2 hours, Solids >8 hours Anesthesia Plan Resuscitation Status: Full Code Anesthesia Technique: General Anesthesia Airway Planned: Natural Airway Monitors Used: Standard Monitors Preoperative Comments:: 61 yo female for left foot hardware removal. Sig PMHx: anxiety/depression, former smoker (1991), occ EtOH. Previous Anes: - lap sade Mac 3 grade 1, got 4 of midaz. needed rescue antiemetic. - colo with conscious sedation colo which converted to anesthesia/prop colo. - cysto with 5 of midaz for spinal, prop gtt. - states for previous foot surgery needed to be put out, unable to find record.
[2021-09-19 10:01] VITALS: BP 120/78; PULSE 80; RESP 17; TEMP 36.9; O2SAT 98
[2021-09-19] MEDS: Lactated Ringers 1,000 ML 80 ML IV (10:16)
[2021-09-19 10:30] VITALS: BMI 28.5
[2021-09-19] MEDS: ceFAZolin 2 GM/50 ML BAG IVPB (11:17)
[2021-09-19] MEDS: Bupivacaine 0.5% Pres-Free 30 ML VIAL (11:25)
[2021-09-19] MEDS: Lidocaine 1% Pres-Free 30 ML VIAL (11:25)
[2021-09-19] MEDS: Dexamethasone 4 MG/ML VIAL (12:13)
--- NOTE | 2021-09-19 12:32 | W.PM.DS.N ---
Date of service: 09/19/21 Time of Service: 12:32 Discharge Plan Disposition Patient Disposition: HOME Condition: Good Discharge Details Attending Provider: Darrian Yan Primary Care Provider: Layne Zavaleta Home Meds and New Rx's Prescriptions: No Action venlafaxine 37.5 mg capsule,extended release 24hr 75 mg PO DAILY Qty: 180 3RF Discharge Orders Discharge Orders: Discharge Order (Routine); Ordered 09/19/21 Ordered By: Darrian Yan DS: Summary Time Spent with Patient providing and/or coordinating discharge services: Less than 30 minutes Status at Discharge Functional status at discharge: independent ambulation Overall status at discharge: patient is back to baseline Mental Status: mental status grossly normal Speech and Movement: speech and movement normal Mood: congruent mood Affect: normal affect Exam Psych Mental Status: mental status grossly normal Speech and Movement: speech and movement normal Mood: congruent mood Affect: normal affect DS: Data Vitals/I&O Vitals and I&O: Vital Signs Temperature 36.9 C 09/19/21 10:01 Pulse 80 09/19/21 10:01 Pulse Rhythm Regular 09/19/21 10:01 Respiratory Rate 17 09/19/21 10:01 Blood Pressure 120/78 09/19/21 10:01 Pulse Oximetry 98 09/19/21 10:01 Oxygen Delivery Method Room Air 09/19/21 10:01 Oxygen Flow Rate 0 09/19/21 10:01 Pain Level 0 09/19/21 10:01 Intake & Output 09/18/21 09/19/21 09/19/21 18:59 06:59 18:59 Intake Total 500 / 500 Balance 500 / 500 Weight 85.275 kg 85.275 kg Intake: IV 500 / 500 PFSH All Active Problems Otitis externa (Acute) Immunization due (Acute) Encounter for annual physical exam (Acute) Left ureteral stone (Acute) Anxiety (Acute 07/16/15) Depressive disorder (Acute 09/08/11) Kidney stones (Acute 07/16/15) followed by dr carson & Dr Shine now right kidney stone 13mm left kidney stone 4mm Tubular adenoma of colon (Chronic 04/13/16) 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 Father Guillain-[place] Brother Kidney stone Sister No problems noted. Daughter No problems noted. Daughter No problems noted. 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 Pets and animals: cat(s) Sexually active: Yes Do you think of yourself as: straight/heterosexual Current gender identity: female What is your relationship status?: How often do you talk on the phone with friends or family?: once per week How often do you get together with friends or relatives?: once per week How often do you attend orthodox or synagogue services?: 1-3 times per year Do you belong to any clubs or organized social groups?: yes Panel score (0-1 are the most socially isolated patients): 2 What type of physical activity do you participate in: walking Duration: 30-45 minutes/day Frequency: 5-6 times per week Gabby/Latter-Day: Catholic Seatbelt use: always Helmet use: Yes Helmet use: always Drive intox or ride w/intox team otr truck driver: No Do you feel safe at home: Yes Do you feel safe in your relationship?: Yes Female Reproductive History Menstrual Date of menopause: 03/29/06 History History 4 Para 2 Hx # Term Pregnancies Multiple births Hx # Pregnancies Ectopic pregnancies AB induced Hx Number of Living Children AB spontaneous Operative Note Operative Note DATE OF PROCEDURE: 09/19/21 PRE-OP DIAGNOSIS: Hallux limitus, symptomatic hardware left foot PROCEDURE: Cheilectomy with hardware removal, left 1st metatarsal SURGEON: Darrian Yan Refer to Anesthesia Record ESTIMATED BLOOD LOSS: 1 PATHOLOGY: none sent TOURNIQUET TIME: 52 COMPLICATIONS: None Patient was transported to: same day Patient's condition: stable Indications: 61-year-old female with progressive pain associated with hallux limitus deformity complicated by retained 2.7 cortical screws in the first metatarsal head region. Pain is experienced in shoe gear and interferes with daily activities. Nonsurgical treatments have failed to provide sufficient relief of symptoms. She understands risk and complications of surgery to include pain, scarring, infection, stiffness of the joint, nerve injury, the need for additional surgeries in the future. No promises have been made to final outcome of surgery. Informed consents been obtained. Procedure Description: Joanna was brought to the operative suite placed in the supine position with a left foot prepped and draped in usual sterile podiatric fashion. Timeout was performed for safe surgery. Anesthesia being obtained left foot was exsanguinated well-padded ankle tourniquet inflated 250 mmHg. Attention was directed to the previous incision over the dorsal medial aspect of the first metatarsal phalangeal joint. Approximately 3 and half centimeters of this incision was reopened utilizing a number of 10 scalpel followed by a 15 scalpel utilizing controlled depth and dissection. Hemostasis being acquired with electrocautery as needed. Dissection was carried down to the joint capsule. The capsule was noted to be thin and somewhat atrophic. The capsule was opened in the midline and retracted medially and laterally. Fibrotic changes were noted. Inspection of the joint revealed significant degenerative arthrosis of the first MPJ with a large dorsal exostosis seen on the head of the first metatarsal. Lipping around the joint was appreciated. Inspection of the cartilage revealed significant thinning but no through and through erosions. 1 screw was visually seen just behind the dorsal exostosis and the other 2 screws were little more proximal and medially oriented with power instrumentation the dorsal hyperostosis from the first metatarsal head was resected as well as the medial lateral joint exostoses. The screws were difficult to mobilized and with an osteotome and mallet a little bit of bony resection around the screw heads was performed and I was able to get a needle-nose pliers on the screws and they were backed out all 3 screws were found and removed in a similar fashion without difficulty. The dorsal aspect of the base of the proximal phalanx was resected with rongeur all rough and bony edges on both sides of the joint was then remodeled and smooth with Roto osteotome. The screw holes were gently debrided out cleaned and everything was copiously irrigated with normal saline. Her range of motion was markedly improved at first MPJ without crepitance the joint capsule was repaired with simple interrupted suture 3-0 Vicryl the subcutaneous layer repaired with simple interrupted suture of 4-0 Vicryl the subcuticular layer was brought together with continuous running suture of 4-0 Monocryl 4 mg dexamethasone phosphate infused deeply into the wound Mastisol half-inch Steri-Strips gauze fluff compression dressings applied he may left the OR with vital signs stable vascular status intact sharp and sponge counts were correct to be followed by myself in the office next week This to dictation not reviewed for rehabilitation counsellor accuracy utilizing Ana Lilia naturally speaking
[2021-09-19 12:41] VITALS: BP 105/61; PULSE 69; RESP 16; TEMP 36.2; O2SAT 96
--- NOTE | 2021-09-19 12:41 | DSE_ITS ---
Discharge Plan Disposition Patient Disposition: HOME Condition: Good Discharge Details Reason For Visit: bunionectomy and hardware removal Attending Provider: Darrian Yan Primary Care Provider: Layne Zavaleta Home Meds and New Rx's Prescriptions: New oxycodone-acetaminophen 5-325 mg tablet 1 tab PO Q6H PRN (Reason: post op pain) Qty: 9 0RF ibuprofen 600 mg tablet 600 mg PO Q6H PRN (Reason: pain and inflammation) Qty: 60 0RF Continued venlafaxine 37.5 mg capsule,extended release 24hr 75 mg PO DAILY Qty: 180 3RF Discharge Instructions Activity:: Elevate Remove Dressings/Wound Care:: Do Not Remove Shower/Bathe:: Cover Diet:: Normal Diet Discharge Orders Discharge Orders: Discharge Order (Routine); Ordered 09/19/21 Ordered By: Darrian Yan DS: Summary Time Spent with Patient providing and/or coordinating discharge services: Less than 30 minutes Status at Discharge Functional status at discharge: independent ambulation Overall status at discharge: patient is back to baseline Mental Status: mental status grossly normal Speech and Movement: speech and movement normal Mood: congruent mood Affect: normal affect Exam Psych Mental Status: mental status grossly normal Speech and Movement: speech and movement normal Mood: congruent mood Affect: normal affect DS: Data Vitals/I&O Vitals and I&O: Vital Signs Temperature 36.9 C 09/19/21 10:01 Pulse 80 09/19/21 10:01 Pulse Rhythm Regular 09/19/21 10:01 Respiratory Rate 17 09/19/21 10:01 Blood Pressure 120/78 09/19/21 10:01 Pulse Oximetry 98 09/19/21 10:01 Oxygen Delivery Method Room Air 09/19/21 10:01 Oxygen Flow Rate 0 09/19/21 10:01 Pain Level 0 09/19/21 10:01 Intake & Output 09/18/21 09/19/21 09/19/21 18:59 06:59 18:59 Intake Total 500 / 500 Balance 500 / 500 Weight 85.275 kg 85.275 kg Intake: IV 500 / 500 PFSH All Active Problems Otitis externa (Acute) Immunization due (Acute) Encounter for annual physical exam (Acute) Left ureteral stone (Acute) Anxiety (Acute 07/16/15) Depressive disorder (Acute 09/08/11) Kidney stones (Acute 07/16/15) followed by dr carson & Dr Shine now right kidney stone 13mm left kidney stone 4mm Tubular adenoma of colon (Chronic 04/13/16) 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 Father Guillain-[place] Brother Kidney stone Sister No problems noted. Daughter No problems noted. Daughter No problems noted. 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 Pets and animals: cat(s) Sexually active: Yes Do you think of yourself as: straight/heterosexual Current gender identity: female What is your relationship status?: How often do you talk on the phone with friends or family?: once per week How often do you get together with friends or relatives?: once per week How often do you attend judaism or voodoo services?: 1-3 times per year Do you belong to any clubs or organized social groups?: yes Panel score (0-1 are the most socially isolated patients): 2 What type of physical activity do you participate in: walking Duration: 30-45 minutes/day Frequency: 5-6 times per week Gabby/Samaritan: Pentecostalism Seatbelt use: always Helmet use: Yes Helmet use: always Drive intox 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
--- NOTE | 2021-09-19 12:51 | W.ANESPOSTOP ---
Postoperative Evaluation Date, Time and Location Date Performed: 09/19/21 Time Performed: 12:52 Patient Location: Day Surgery Unit Vital Signs Most Recent Imported Vital Signs: Most Recent Vital Signs Temp Pulse Resp BP Pulse Ox 36.2 C L 69 16 105/61 96 09/19/21 12:41 09/19/21 12:41 09/19/21 12:41 09/19/21 12:41 09/19/21 12:41 Pain Score Most Recent Pain Score: Most Recent Pain Score Pain Level 0 09/19/21 12:41 Assessment Mental Status: Awake (Alert & Oriented to Patient Baseline) Airway and Respiratory Function: Patent airway with normal (patient baseline) respiratory exam Cardiovascular Function: Hemodynamically Stable Hydration Status: Adequately Hydrated Nausea & Vomiting: No Nausea or Vomiting Pain: Pt. Denies Any Pain Peripheral Nerve Block: Patient did not receive a nerve block
[2021-09-19 13:02] VITALS: BP 112/67; PULSE 61; RESP 17; TEMP 36.1; O2SAT 98
[2021-09-19] MEDS: Ketorolac 15 MG/ML VIAL IVP (13:16)
--- NOTE | 2021-09-22 12:30 | W.PM.OP ---
Operative Note Operative Note DATE OF PROCEDURE: 09/19/21 PRE-OP DIAGNOSIS: hallux limitus/rigidus symptomatic hardwar left foot PROCEDURE: Cheilectomy with hardware removal, left 1st metatarsal SURGEON: Darrian Yan Refer to Anesthesia Record ESTIMATED BLOOD LOSS: 1 PATHOLOGY: none sent TOURNIQUET TIME: 52 Patient was transported to: same day Patient's condition: stable Implants: Cheilectomy with hardware removal, left 1st metatarsal Indications: 61YO female with progressivew pain asociated with her left 1st mpj and retained hardware. Pain is interferring with shoe gear and daily acitity and wor. She understands potential risks and complications of surgery. All questions were answered, alternative treatments discussed, informed consent obtained. Procedure Description: Joanna was brought to the operative suite, place in the supine position position where the left foot was prepped and draped in the usual podiatric fashion. Time out was performewd for safe surgery. Anesthesia being achieved, the left foot was exsanguinated and a well padded ankle tourniquee inflated to 250mmhg. Attention was directed to the dorsal aspect of the left 1st MPJ where a 4cm midline incision was placed over the existing cicatrix. The incison was deeped with a #15 scalpel and homeostasis obtained with electrocautery. The joint capsule was opened. Degenerative changes about the 1st MPJ noted with spurring around the dorsal, medial and lateral aspect of the joint. The articular surfaces are thin and showing moderate degenerative changes. The retained scres in the 1st metatarsal neck were identified. With power instrumentation, the joint exostosis were resected and remolded with a Baljit type modification. Good ROM noted on the table. The screws were cleared of over lying bone with osteotome and mallet and ronguer and removed without difficulty. The wound was copiously irrigated with NS. The joint capsule was repaired with simple interupped suture of 3-0 vicryl, subcuttaneous layer with 4-= vicryl and the subcuticular layer closed with 4-0 monocryl. 4mgs of dexamethasone phosphate was the injected into the surgical site followed by mastersol, steri strps, xeroform, gauze fluff and kerlix rolls x 2. The tournique was released and vascularity returned immedilately to al toes. Sharps and sponges were counted. Joanna left the OR with VSS, vascular status intact and will be followed by myself in the office next week.
== END 2021-09-19 13:50 | disposition home or self-care (01) ==
PROVIDERS: Visit Provider Podiatrist
PROC: (CPT 28289; principal; 2021-09-19 10:00)
DX: M21.612 Bunion of left foot (principal); M20.5X2 Other deformities of toe(s) (acquired), left foot; T84.84XA Pain due to internal orthopedic prosthetic devices, implants and grafts, initial encounter
CPT/HCPCS: 28296; 20680; J0690; J1100; J1885; J2405

== ENCOUNTER 2021-12-10 11:55 | Outpatient (CLI) | payer BC, SELFPAY ==
--- NOTE | 2021-12-10 11:15 | DI.RAD_ITS ---
Exam(s) XR KNEE RT 4V AP,LAT,MARK,PAT EXAM: XR KNEE RT 4V AP,LAT,MARK,PAT CLINICAL HISTORY: pain in knee. TECHNIQUE: 2D digital imaging was performed. COMPARISON: No exams were available for comparison FINDINGS: Four views: There is no evidence of fracture although there does appear to be a small joint effusion. This may s ignify an internal derangement. Bone density is normal. No degenerative changes. No osseous lesion s evident. IMPRESSION: No significant osseous findings but there does appear to be a small joint effusion. This may signify an internal derangement. Appropriate follow-up recommended DATA REPOSITORY: RADIATION DOSE DELIVERED:
== END 2021-12-10 11:56 | disposition home or self-care (01) ==
LOC: DIORS 11:56
PROVIDERS: Visit Provider Physician Assistant Surgical
DX: M25.561 Pain in right knee (principal); M25.461 Effusion, right knee
CPT/HCPCS: 73564

== ENCOUNTER → 2021-12-29 14:27 | Outpatient (CLI) | payer BC, SELFPAY ==
--- NOTE | 2021-12-29 14:30 | DI.RAD_ITS ---
Exam(s) XR FOOT LT COMPLETE EXAM: XR FOOT LT COMPLETE CLINICAL HISTORY: LT FOOT SPRAIN-S93.602A, FOOT PAIN-M79.673, HALLUX RIGIDUS LT FOOT-M20.22. TECHNIQUE: 2D digital imaging was performed. Three views. COMPARISON: No exams were available for comparison FINDINGS: BONES: No acute fracture is present. No bony destructive lesion is seen. JOINTS: No dislocation present. Plantar arch is maintained. There are degenerative changes of the 1st MTP joint. No hallux valgus. SOFT TISSUE: Normal. IMPRESSION: Degenerative changes of the 1st MTP joint. DATA REPOSITORY: RADIATION DOSE DELIVERED:
== END ==
PROVIDERS: Visit Provider Podiatrist Foot & Ankle Surgery
DX: M79.672 Pain in left foot (principal); S93.692A Other sprain of left foot, initial encounter; M20.22 Hallux rigidus, left foot; M19.072 Primary osteoarthritis, left ankle and foot
CPT/HCPCS: 73630

== ENCOUNTER 2022-02-06 00:36 | Outpatient (CLI) | payer BC, SELFPAY ==
--- NOTE | 2022-02-06 07:30 | DI.MRI_ITS ---
Exam(s) MR LOWER JOINT RT WO EXAM: MR LOWER JOINT RT WO CLINICAL HISTORY: pain,INTERNAL DERANGEMENT RT KNEE, M23.91 TECHNIQUE: Multiplanar multisequence MRI of the knee was performed. COMPARISON: CR XR KNEE RT 4V AP,LAT,MARK,PAT from 12/10/2021 FINDINGS: EFFUSION: There is a small amount of increased joint fluid. There is no Cesar cyst in the popliteal fossa. MARROW:There is no evidence of fracture, bone contusion, nor osteochondral defects.. There are no si gnificant osseous lesions. PATELLOFEMORAL COMPARTMENT: The quadriceps tendon is intact. The patellar ligament is intact. There is mild uniform thinning of the retropatellar cartilage. No distinct fissure. No osteochondra l defect. No abnormal intraosseous signal in the patella itself.There is no intraosseous signal to s uggest recent patellar dislocation. There are no patellar retinacular tears. CRUCIATE LIGAMENTS: The anterior cruciate ligament is intact.The posterior cruciate ligament is intac t. MEDIAL COMPARTMENT/MEDIAL MENISCUS: There are no tears of the medial meniscus evident.. There are no chondral defects, osteochondral defects, subarticular marrow edema, nor osteophytes evid ent. MEDIAL COLLATERAL LIGAMENT: Intact LATERAL COMPARTMENT/LATERAL MENISCUS: There is no evidence of lateral meniscal tear.There are no adebayo dral defects, osteochondral defects, subarticular marrow edema, nor osteophytes evident. ILIOTIBIAL BAND: Intact LATERAL COLLATERAL LIGAMENT COMPLEX: The fibular collateral ligament is intact. The biceps femoris t endon is intact.Popliteus muscle and tendon are intact. IMPRESSION: 1. There is a small knee joint effusion but there does not appear to be an obvious significant compensation intern al derangement and there are no loose intra-articular bodies. No Cesar's cyst. 2. No abnormal intraosseous signal. 3. Anterior posterior cruciate ligaments are intact as are the collateral ligament complexes 4. There are no meniscal tears. DATA REPOSITORY:
== END 2022-02-06 00:56 ==
LOC: DI 00:36
PROVIDERS: PCP Nurse Practitioner Family; Visit Provider Student in an Organized Health Care Education/Training Program
DX: M25.461 Effusion, right knee (principal)
CPT/HCPCS: 73721

== ENCOUNTER 2022-03-05 01:32 | Outpatient (CLI) | payer BC, SELFPAY ==
[2022-03-05 12:35] LABS: ALT 22 U/L (14-59); AST 14 U/L (15-37); Albumin 3.9 g/dL (3.4-5.0); Alkaline Phosphatase 76 U/L (46-116); Anion Gap 8.8 mmol/L (3-11); BUN 23 mg/dL (7-18); Bilirubin, Total 0.6 mg/dL (0.2-1.0); CO2 26.2 mmol/L (21.0-32.0); CREATININE 0.6 mg/dL (0.55-1.02); Calcium 9.4 mg/dL (8.5-10.1); Calculated LDL 136 mg/dL (<100); Chloride 103 mmol/L (98-107); Cholesterol 227 mg/dL (<200); Estimated GFR 102.69 (mL/min/1.73m2); Glucose 127 mg/dL (74-106); HDL Cholesterol 83 mg/dL (40-60); Potassium 4.3 mmol/L (3.5-5.1); Sodium 138 mmol/L (136-145); Total Protein 7.5 g/dL (6.4-8.2); Triglyceride 42 mg/dL (<150)
== END 2022-03-05 01:33 | disposition home or self-care (01) ==
LOC: LOS 01:32
PROVIDERS: PCP Nurse Practitioner Family; Visit Provider Nurse Practitioner Family
DX: R63.8 Other symptoms and signs concerning food and fluid intake (principal); Z13.220 Encounter for screening for lipoid disorders
CPT/HCPCS: 36415; 80053; 80061

== ENCOUNTER 2022-04-27 01:51 | Outpatient (CLI) | payer BC, SELFPAY ==
--- NOTE | 2022-04-27 07:50 | DI.MAMMO_ITS ---
Exam(s) MAMMO SCREENING EXAM: MAMMO SCREENING CLINICAL HISTORY: screening TECHNIQUE: Bilateral full field digital CC and MLO mammographic images were obtained with 3D tomosyn thesis and utilizing computer aided detection (CAD). COMPARISON: Available for comparison. FINDINGS: Masses/Architectural Distortion: None seen. Microcalcifications: No suspicious pleomorphic-type are seen. Skin Thickening/Nipple Retraction: None. IMPRESSION: 1. No significant interval change with no specific features of malignancy noted. 2. Unless there is more urgent need, screening mammography is recommended, as per [place] [employer] guidelines. BI-RADS Category 1 - Negative Breast Density - Category C - Heterogeneously dense Breast density category C or D implies that the patient has dense breast tissue. Dense breast tissue is very common and is not abnormal but dense breast tissue can make it harder to find cancer on a ma mmogram. Also, dense breast tissue may increase their breast cancer risk. This information about the result of the mammogram report was provided to the patient to raise their awareness. Use this report when you speak with the patient about their risks for breast cancer, which includes their family hist ory. At that time, you may recommend for more screening tests (Ultrasound or MRI) as they might be us eful based on their risk. A negative radiographic report should not delay biopsy if a dominant or clinically suspicious mass is present. Up to ten percent of cancers are not identified on mammography. A negative report may reinforce clinical impression. Adenosis and dense breasts may obscure an underlying neoplasm. False positive reports average 6 to 10%. Patient will receive a letter notifying them of these results.
== END 2022-04-27 02:11 ==
LOC: DI 01:51
PROVIDERS: PCP Nurse Practitioner Family; Visit Provider Nurse Practitioner Women's Health
DX: Z12.31 Encounter for screening mammogram for malignant neoplasm of breast (principal)
CPT/HCPCS: 77063; 77067

== ENCOUNTER 2022-04-28 01:13 | Outpatient (CLI) | payer BC, SELFPAY ==
--- NOTE | 2022-04-28 07:45 | DI.RAD_ITS ---
Exam(s) XR ABDOMEN FLAT PLATE EXAM: 2D digital imaging was performed. CLINICAL HISTORY: monitor known kidney stones, n20.0. COMPARISON: CR XR ABDOMEN FLAT PLATE from 04/29/2021 TECHNIQUE: Supine views of the abdomen performed. Two views were obtained. FINDINGS: BOWEL GAS PATTERN: Nondistended. There is a moderate amount of stool in the colon. CALCIFICATIONS: Phleboliths are again seen in the pelvis. The calcifications overlying the lower ronan es of the kidneys are stable. OSSEOUS STRUCTURES: Normal for age. OTHER FINDINGS: Surgical clips are again seen in the right upper quadrant of the abdomen. The visual ized lung bases are clear. IMPRESSION: Stable renal calculi. DATA REPOSITORY: RADIATION DOSE DELIVERED:
== END 2022-04-28 01:33 ==
PROVIDERS: PCP Nurse Practitioner Family; Visit Provider Urology
DX: N20.0 Calculus of kidney (principal)
CPT/HCPCS: 74018

== ENCOUNTER 2022-05-20 09:54 | Day surgery (SDC) | payer BC, SELFPAY ==
[2022-05-20] VITALS (8 sets, daily range): BP systolic 115–147; BP diastolic 65–88; PULSE 58–76; RESP 11–16; TEMP 36.4–36.7; O2SAT 96–99; BMI 28.3
--- NOTE | 2022-05-20 10:16 | HPE_ITS ---
Assessment and Plan Assessment and plan (1) Internal derangement of right knee: Status: Acute Assessment and plan: Right knee arthroscopy. Details of surgery were discussed with patient as well as risks and pertinent anatomy. All questions were answered. History of Present Illness History of Present Illness Chief Complaint: Right knee pain Narrative: Joanna is a 62-year-old female who comes in today for a right knee arthroscopy. She has had atraumatic knee pain for about 8 months. She has pain with prolonged ambulation or standing. She also has pain with prolonged sitting such as driving. Direct pressure also gives her pain especially posteriorly. An MRI did not reveal and pathology that might explain this pain. She has exhausted conservative treatment including activity modification, tvek-sje-heexkza medication as well as an intra-articular injection. She was offered a diagnostic right knee arthroscopy and she is anxious to proceed. Review of Systems Constitutional Constitutional: Denies fever(s) ENT Ears, Nose, Mouth, and Throat: Denies dizziness and Denies sore throat Cardiovascular Cardiovascular: Denies chest pain, Denies palpitations and Denies dyspnea Respiratory Respiratory: Denies cough and Denies dyspnea Gastrointestinal Gastrointestinal: Denies abdominal pain, Denies melena, Denies hematochezia, Denies diarrhea, Denies nausea and Denies vomiting Genitourinary Genitourinary: Denies hematuria and Denies dysuria Neurologic Neurologic: Denies dizziness Endocrine Endocrine: Denies palpitations PFSH All Active Problems Anxiety (Acute 07/16/15) Depressive disorder (Acute 09/08/11) Kidney stones (Acute 07/16/15) followed by dr carson & Dr Shine now right kidney stone 13mm left kidney stone 4mm Tubular adenoma of colon (Chronic 04/13/16) Varicose veins of right lower extremity (Chronic) Increased body mass index (BMI) (Acute) Internal derangement of right knee (Acute) Screening for hyperlipidemia (Acute) Medical History Anxiety Depression Hallux rigidus of left foot Hx of renal calculi Injury of intrinsic muscle of finger Otitis externa Sprain of foot, left Tubular adenoma of colon Surgical History Cataract extraction status, left eye (~03/14/18) 03/14/18 [facility] Cholecystectomy Colonoscopy - MAC (04/13/16) Extraction of cataract (~2010) LEFT EYE Hx of foot surgery left Ligation of fallopian tube Family History Mother No problems noted. Father Guillain-[place] Brother Kidney stone Sister No problems noted. Daughter No problems noted. Daughter No problems noted. 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 Pets and animals: cat(s) Sexually active: Yes Do you think of yourself as: straight/heterosexual Current gender identity: female What is your relationship status?: How often do you talk on the phone with friends or family?: once per week How often do you get together with friends or relatives?: once per week How often do you attend hindu or yazidism services?: 1-3 times per year Do you belong to any clubs or organized social groups?: yes Panel score (0-1 are the most socially isolated patients): 2 What type of physical activity do you participate in: walking Duration: 30-45 minutes/day Frequency: 5-6 times per week Gabby/Alevism: Congregational Seatbelt use: always Helmet use: Yes Helmet use: always Drive intox 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 Do you feel safe at home: Yes Do you feel safe in your relationship?: Yes Female Reproductive History Menstrual Date of menopause: 03/29/06 History History 4 Para 2 Hx # Term Pregnancies Multiple births Hx # Pregnancies Ectopic pregnancies AB induced Hx Number of Living Children AB spontaneous Meds Allergies and Home Medications Allergies Allergy/AdvReac Type Severity Reaction Status Date / Time Sulfa (Sulfonamide Allergy Mild RASH Verified 05/19/22 09:21 Antibiotics) epinephrine Allergy Unknown Verified 05/19/22 09:21 Home Medications Medication Instructions Recorded Confirmed Type acetaminophen 500 mg tablet 1,000 mg PO TID #90 tabs 05/20/22 Rx hydrocodone 5 mg-acetaminophen 325 1 tab PO Q6H PRN pain #10 tabs 05/20/22 Rx mg tablet ibuprofen 600 mg tablet 600 mg PO TID PRN pain #90 tabs 05/20/22 Rx Exam Const General: cooperative and no acute distress Orientation: alert and awake HENDE Head: normocephalic and atraumatic Eyes Conjunctivae: conjunctivae normal Sclera: sclerae normal Resp Effort & Inspection: normal respiratory effort Auscultation: clear to auscultation bilaterally and no wheezes Cardio Rate: regular rate Rhythm: regular rhythm Heart Sounds: S1 normal, S2 normal and no murmurs GI Palpation: soft, no hepatosplenomegaly and nontender
[2022-05-20] MEDS: Acetaminophen 500 MG TAB 1000 MG PO (10:43)
[2022-05-20] MEDS: Celecoxib 200 MG CAP 400 MG PO (10:43)
[2022-05-20] MEDS: Lactated Ringers 1,000 ML 80 ML IV (11:00)
--- NOTE | 2022-05-20 11:13 | W.ANESPRE ---
General Info Date of Service Date Performed: 05/20/22 Height: 5 ft 8 in Weight: 84.5 kg Body Mass Index (BMI): 28.3 Surgical Procedure: Operation Date: 05/20/22 12:40 Proposed Procedure Side Surgeon p Diagnostic Knee Arthroscopy Right Juan Antonio cason MD Meds Allergies and Home Medications Allergies Allergy/AdvReac Type Severity Reaction Status Date / Time Sulfa (Sulfonamide Allergy Mild RASH Verified 05/19/22 09:21 Antibiotics) epinephrine Allergy Unknown Verified 05/19/22 09:21 Home Medication Medication Instructions Recorded ibuprofen 600 mg tablet 600 mg PO Q6H PRN pain and 09/19/21 inflammation #60 tabs Current Visit Medications: Current Medications Generic Name Dose Route Start Last Admin Trade Name Freq PRN Reason Stop Dose Admin Acetaminophen 1,000 mg 05/20/22 06:00 05/20/22 10:43 Acetaminophen 500 Mg Tab PO 05/20/22 16:00 1,000 mg PREOP KEENAN Administration Celecoxib 400 mg 05/20/22 06:00 05/20/22 10:43 Celecoxib 200 Mg Cap PO 05/20/22 16:00 400 mg PREOP KEENAN Administration Ringer's Solution 1,000 mls @ 80 mls/hr 05/20/22 06:00 IV 06/18/22 23:59 INFUSION KEENAN Cefazolin Sodium/Dextrose 2 gm in 50 mls @ 100 mls/hr 05/20/22 06:00 Ancef Duplex IVPB 06/18/22 23:59 PREOP KEENAN IV Miscellaneous Supplies 1 each 05/20/22 06:00 Iv Access IV 06/18/22 23:59 DIRECTED KEENAN Sodium Chloride 0 ml 05/20/22 06:00 Normal Saline Flush 10 Ml Syr IV 06/18/22 23:59 PRN PRN Sodium Chloride 0 ml 05/20/22 06:00 Normal Saline 10 Ml Vial IJ 06/18/22 23:59 DIRECTED PRN Sterile Water 0 ml 05/20/22 06:00 Water,Injection,Sterile 10 Ml Vial IJ 06/18/22 23:59 DIRECTED PRN PFSH Active Problems Active Problems: Problem Status Onset Code Anxiety 07/16/15 F41.9 Depressive disorder 09/08/11 F32.9 Kidney stones 07/16/15 N20.0 Tubular adenoma of colon 04/13/16 D12.6 Varicose veins of right lower extremity I83.91 Increased body mass index (BMI) R63.8 Internal derangement of right knee M23.91 Screening for hyperlipidemia Z13.220 Medical History Medical History Anxiety Depression Hallux rigidus of left foot Hx of renal calculi Injury of intrinsic muscle of finger Otitis externa Sprain of foot, left Tubular adenoma of colon Medical History Comments:: Last surgery done 09/19/21 with Reid kwok did anesthesia, and was the only one who was able to provide her with anesthesia where she wasn't nauseous. Please reference anesthesia record from that date Surgical History Surgical History Cataract extraction status, left eye (~03/14/18) 03/14/18 [facility] Cholecystectomy Colonoscopy - MAC (04/13/16) Extraction of cataract (~2010) LEFT EYE Hx of foot surgery left Ligation of fallopian tube Tobacco Smoking/Tobacco Use Status: Former Tobacco Use Passive smoking exposure: No Second hand exposure: No Alcohol Alcohol Intake: current Alcohol intake frequency: holidays/special occasions only Alcohol type: wine Substance Use Substance use: Never Substance use type: does not use Counseling provided: none Prental History History 4 Para 2 Hx # Term Pregnancies Multiple births Hx # Pregnancies Ectopic pregnancies AB induced Hx Number of Living Children AB spontaneous Vital Signs and Lab Results Vital Signs Most Recent Vital Signs in EMR: Most Recent Vital Signs Temp Pulse Resp BP Pulse Ox 36.7 C 76 16 147/88 H 80 L 05/20/22 10:11 05/20/22 10:11 05/20/22 10:11 05/20/22 10:11 05/20/22 10:11 Lab Results Blood Type / Crossmatch: No Data to Display Complete Blood Count: No Data to Display Complete Metabolic Panel: Hemoglobin A1c 5.0 % (4.5-5.7) 04/22/22 12:20 Liver Function Panel: No Data to Display Coagulation Panel: No Data to Display Cardiac Panel: No Data to Display Arterial Blood Gas: No Data to Display Venous Blood Gas: No Data to Display Pancreas Panel: No Data to Display Thyroid Panel: No Data to Display Infectious Disease: No Data to Display Blood Cultures: No Data to Display Toxicology Panel: No Data to Display Anesthesia Assessment and Plan Anesthesia History Personal History: PONV Family History: No Family History of Anesthesia Complications Exercise Tolerance Exercise Tolerance: Metabolic Equivalents>4 Pertinent Negatives Pertinent Negatives: No Symptoms of GERD, No Major Cardiovascular Symptoms or Complaints, No Major Pulmonary Symptoms or Complaints and No History of CVA/TIA Cardiac & Pulmonary Exam Cardiac Exam: Normal S1/S2 Heart Sounds Pulmonary Exam: Clear Bilateral Breath Sounds Implantable Cardiac Device Does patient have a Pacemaker or an ICD?: No Airway Exam Known Difficult Airway: No Mallampati Class: 2 Mouth Opening: Normal (> 3cm) Thyromental Distance: Greater than 3 cm Neck Range of Motion: Full ROM Neck Circumference: Normal Teeth Condition: Normal Dentition ASA Classification ASA Score: ASA 2 Emergency Case?: No NPO Status NPO Status: NPO Clears >2 hours, Solids >8 hours Anesthesia Plan Resuscitation Status: Full Code Anesthesia Technique: General Anesthesia Airway Planned: LMA Monitors Used: Standard Monitors
[2022-05-20] MEDS: ceFAZolin 2 GM/50 ML BAG IVPB (12:00)
[2022-05-20] MEDS: EPINEPHrine 30 MG/30 ML VIAL (12:30)
[2022-05-20] MEDS: Bupivacaine 0.5% Pres-Free 30 ML VIAL (12:30)
--- NOTE | 2022-05-20 12:34 | W.PM.DSUDISC ---
Date of service: 05/20/22 Time of Service: 12:34 Discharge Plan Disposition Patient Disposition: Home Condition: Good Discharge Details Reason For Visit: R knee arthroscopy Attending Provider: Juan Antonio Kee Primary Care Provider: Terry Leung Home Meds and New Rx's Prescriptions: New acetaminophen 500 mg tablet 1,000 mg PO TID Qty: 90 0RF hydrocodone-acetaminophen 5-325 mg tablet 1 tab PO Q6H PRN (Reason: pain) Qty: 10 0RF ibuprofen 600 mg tablet 600 mg PO TID PRN (Reason: pain) Qty: 90 0RF Discontinued ibuprofen 600 mg tablet 600 mg PO Q6H PRN (Reason: pain and inflammation) Qty: 60 0RF Discharge Instructions Stand Alone Forms: Vidhya Knee Arthroscopy Referrals: Juan Antonio Kee MD [ [facility] STAFF PHYSICIAN] - 06/01/22 9:30 am Equipment/Supplies: Partial Weight Bearing Crutches Activity:: Activity as Tolerated Remove Dressings/Wound Care:: 72 hours Shower/Bathe:: 72 hours Diet:: As Tolerated Discharge Orders Discharge Orders: Discharge Order (Routine); Ordered 05/20/22 Ordered By: César Roe DS: Diagnosis Discharge Diagnosis (1) Internal derangement of right knee: Status: Acute
[2022-05-20] MEDS: fentaNYL 100 MCG/2 ML VIAL IVP (13:09)
[2022-05-20] MEDS: HYDROcodone 5/Acetaminophen 325 TAB PO (13:54)
--- NOTE | 2022-05-20 14:04 | W.ANESPOSTOP ---
Postoperative Evaluation Date, Time and Location Date Performed: 05/20/22 Time Performed: 14:04 Patient Location: Day Surgery Unit Vital Signs Most Recent Imported Vital Signs: Most Recent Vital Signs Temp Pulse Resp BP Pulse Ox 36.4 C L 65 16 126/75 97 05/20/22 13:40 05/20/22 13:40 05/20/22 13:40 05/20/22 13:40 05/20/22 13:40 Pain Score Most Recent Pain Score: Most Recent Pain Score Pain Level 4 05/20/22 13:40 Assessment Mental Status: Awake (Alert & Oriented to Patient Baseline) Airway and Respiratory Function: Patent airway with normal (patient baseline) respiratory exam Cardiovascular Function: Hemodynamically Stable Hydration Status: Adequately Hydrated Nausea & Vomiting: No Nausea or Vomiting Pain: Pain is tolerable per patient Peripheral Nerve Block: Patient did not receive a nerve block
--- NOTE | 2022-05-20 21:19 | W.PM.OP ---
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 This was confirmed based on MRI and exam findings. Nonoperative measures were exhausted but disability and pain persisted. I discussed knee arthroscopy with meniscal intervention with the patient. I reviewed the risks of the procedure to include, but not limited to, bleeding, infection, pain, stiffness, damage to nerves or vessels, recurrence, blood clot. Despite these risks, the patient elected to proceed. Findings: A diagnostic arthroscopy was performed with the following findings: Suprapatellar Pouch: Moderate inflammation, No loose bodies Medial Compartment: No meniscal tear, Intact meniscal root, Grade III chondromalacia of the posterior femur and Grade II of the posterior tibia with a small chondral flap at the weigh-bearing portion, No loose bodies Notch: ACL and PCL were intact Lateral Compartment: Partial tearing of the posterior meniscus extending into the root with degenerative meniscal changes, No significant chondromalacia or signs of arthritis, No loose bodies Patellofemoral Compartment: Grade II chondromalacia of the patella, No apparent patellar maltracking Procedure Description: Joanna was greeted in the preoperative holding area where the correct side was identified and marked. The consent was reviewed with the patient and signed. The history and physical was updated. All questions were answered. She was taken back to the operating room. The patient was placed into the supine position on the operating room table. A nonsterile tourniquet was placed high onto the leg but not used. All bony prominences were well padded. Prophylactic antibiotics in the form of Cefazolin were administered. The right leg was then prepped with Chloraprep and draped in a standard fashion with stockinette and extremity drape. A timeout to confirm correct identity, side and site, procedure, allergies, anesthesia, and medical concerns was performed. The leg was placed into a pneumatic leg ellis, [id number]. A standard lateral portal was made at the lateral border of the patella tendon in line with the inferior pole of the patella, soft spot. The skin and deep tissue was incised sharply and the blunt trochar was inserted atraumatically. A diagnostic arthroscopy was performed and the findings are listed above. The suprapatellar pouch had moderate inflammatory change. The patellofemoral articulation showed some Grade II chondromalacia at the median ridge and good tracking. The lateral gutter had no loose bodies and the medial gutter had no loose bodies. The knee was brought into some valgus stress in extension to open the medial compartment. A medial portal was made, localized by a spinal needle. The portal was created with an #11 blade through skin and capsule under direct visualization avoiding any meniscal injury. A probe was then inserted into the medial compartment. The medial compartment was fully inspected. The chondral surface of the tibia showed some grade II chondromalacia with generalized thinning of the tibial surface more posteriorly and the surface of the femur showed grade III chondromalacia mostly of the posterior aspect of the femur with a loose ridge of cartilage tissue. The medial meniscus had no meniscal tear. The loose flap of cartilage tissue was smoothed down such that there is no displaceable cartilage material. The notch was then inspected which showed an intact ACL and an intact PCL. The leg was then brought into a figure of 4 position. The lateral compartment was fully inspected with the arthroscope and a probe. The chondral surface of the lateral femur showed no significant chondromalacia. The chondral surface of the lateral tibia showed no significant chondromalacia. The lateral meniscus had a complex tear at the posterior margin at the root. The tissue in this area was quite degenerative in nature and amorphous. The tear extended into the root although there was some peripheral fibers still remaining.. After evaluation, the meniscus was debrided down to a stable base using a series of biters and arthroscopic sang. It was probed afterwards to confirm that the tear had been removed and the meniscus was stable. The arthroscope was brought back into the suprapatellar pouch and the leg was in full extension. I debrided the excessive synovial tissue present around the patella in the patellofemoral space. Then, the knee was thoroughly irrigated with the arthroscopic fluid on high flow and pressure. Inflow was stopped and excess fluid was removed. The wounds were closed with 4-0 Nylon. They were dressed with Xeroform, 4x4 gauze, ABD pad, Kerlix and an RAMONITA wrap. A cryo-cuff was applied. The patient tolerated the procedure well and was returned to the Same Day Surgery area in a stable condition suffering no known complication.
== END 2022-05-20 14:48 | disposition home or self-care (01) ==
PROVIDERS: PCP Nurse Practitioner Family; Visit Provider Student in an Organized Health Care Education/Training Program
PROC: (CPT 29870; principal; 2022-05-20 12:30)
DX: M23.261 Derangement of other lateral meniscus due to old tear or injury, right knee (principal); M65.861 Other synovitis and tenosynovitis, right lower leg; M94.261 Chondromalacia, right knee
CPT/HCPCS: 29881; J0690; J1100; J2250; J2405; J2704; J3010

== ENCOUNTER 2022-10-14 14:39 | Outpatient (CLI) | payer BC, SELFPAY ==
--- NOTE | 2022-10-14 13:30 | DI.RAD_ITS ---
Exam(s) XR WRIST RT COMPLETE EXAM: XR WRIST RT COMPLETE CLINICAL HISTORY: wrist pain. TECHNIQUE: 2D digital imaging was performed. Three views. COMPARISON: CR [id number] PA/LAT/OBL(3)V [id number] from 09/28/2022 FINDINGS: BONES: No acute fracture is present. No bony destructive lesion is seen. JOINTS: The carpal bones are normally aligned. SOFT TISSUE: Normal. IMPRESSION: Unremarkable radiographs of the right wrist. DATA REPOSITORY: RADIATION DOSE DELIVERED:
== END 2022-10-14 14:40 | disposition home or self-care (01) ==
LOC: DIORS 14:39
PROVIDERS: PCP Nurse Practitioner Family; Referring Provider Nurse Practitioner Family; Visit Provider Student in an Organized Health Care Education/Training Program
DX: M25.531 Pain in right wrist (principal)
CPT/HCPCS: 73110

== ENCOUNTER 2022-11-05 02:43 | Outpatient (CLI) | payer BC, SELFPAY ==
[2022-11-05 12:17] LABS: Abs Immature Grans 0.02 10^3/uL (0.0-0.06); Absolute Basophil Count 0.06 10^3/uL (0.0-0.2); Absolute Eosinophil Count 0.21 10^3/uL (0.0-0.7); Absolute Lymphocyte Count 2.37 10^3/uL (1.2-3.4); Absolute Monocyte Count 0.73 10^3/uL (0.1-0.8); Absolute Neutrophil Count 4.69 10^3/uL (1.2-6.7); Basophils % 0.7; Eosinophils % 2.6; HCT 42.2 % (36.0-46.0); HGB 14.3 g/dL (11.2-15.7); Immature Grans % 0.2; Lymphocytes % 29.3; MCH 29.1 pg (27.0-33.0); MCHC 33.9 % (32.0-36.0); MCV 86 fL (80-95); MPV 10.1 fL (8.0-11.0); Neutrophils % 58.2; Platelet Count 330 10^3/uL (130-400); RBC 4.91 10^6/uL (3.93-5.22); RDW 12.4 % (11.7-14.6); RDW-SD 38.9 fL; WBC 8.08 10^3/uL (4.4-10.8)
== END 2022-11-05 02:44 | disposition home or self-care (01) ==
PROVIDERS: PCP Nurse Practitioner Family; Visit Provider Surgery
DX: D12.6 Benign neoplasm of colon, unspecified (principal); Z13.220 Encounter for screening for lipoid disorders; Z80.0 Family history of malignant neoplasm of digestive organs
CPT/HCPCS: 36415; 85025

== ENCOUNTER 2022-11-10 08:19 | Outpatient (CLI) | payer BC, SELFPAY ==
--- NOTE | 2022-11-10 08:00 | DI.RAD_ITS ---
Exam(s) XR WRIST RT COMPL NAVICULAR EXAM: XR WRIST RT COMPL NAVICULAR CLINICAL HISTORY: right wrist f/u. TECHNIQUE: 2D digital imaging was performed. Three views. COMPARISON: CR XR WRIST RT COMPLETE from 10/14/2022 FINDINGS: There is a nondisplaced fracture through the mid pole of the navicular. No additional fractures are seen. Carpal bones are normally aligned. IMPRESSION: Navicular fracture. DATA REPOSITORY: RADIATION DOSE DELIVERED:
--- NOTE | 2022-11-10 08:15 | DI.RAD_ITS ---
Exam(s) XR ANKLE RT COMPLETE EXAM: XR ANKLE RT COMPLETE CLINICAL HISTORY: right ankle pain. TECHNIQUE: 2D digital imaging was performed. Three views. COMPARISON: CR XR FOOT LT COMPLETE from 12/29/2021 FINDINGS: BONES: The lucency through the lateral malleolus may represent an acute or subacute nondisplaced frac ture. No acute fracture is present. No bony destructive lesion is seen. Small heel spurs. JOINTS: The ankle mortise is normally aligned. SOFT TISSUE: Soft tissue edema. IMPRESSION: Show nondisplaced fracture lateral malleolus. DATA REPOSITORY: RADIATION DOSE DELIVERED:
== END 2022-11-10 08:20 | disposition home or self-care (01) ==
PROVIDERS: PCP Nurse Practitioner Family; Referring Provider Family Medicine; Visit Provider Student in an Organized Health Care Education/Training Program
DX: S82.64XA Nondisplaced fracture of lateral malleolus of right fibula, initial encounter for closed fracture (principal); M25.571 Pain in right ankle and joints of right foot; S62.024A Nondisplaced fracture of middle third of navicular [scaphoid] bone of right wrist, initial encounter for closed fracture; X58.XXXA Exposure to other specified factors, initial encounter
CPT/HCPCS: 73110; 73610

== ENCOUNTER 2022-11-13 09:06 | Day surgery (SDC) | payer BC, SELFPAY ==
--- NOTE | 2022-11-12 20:48 | COLE_ITS ---
Date of service: 11/13/22 Time of Service: 11:00 Colonoscopy Report Date of procedure: 11/13/22 Pre-op diagnosis general: Adenomatous polyps/Mother has CRC Post-op diagnosis procedure note: same Surgeon: Betty Crawford Anesthesia Type: General:No Airway Estimated blood loss (mL): 1 Pathology: other Complications: None Disposition: same day Prep: Miralax/Dulcolax Retraction Time: 23 Procedure Description: After informed consent was obtained the patient was taken to the procedure room and placed in a left decubitous position. Monitors were applied and a time out was done. The patients name, date of , procedure, allergies to medications and metal in their body was reviewed. The patient was then sedated. Once sedated and comfortable a rectal exam was done. External exam was normal. Internal exam revealed a normal sphincter tone and no palpable masses. The scope was then introduced and retrofelexed. No without internal hemorrhoids were identified. The scope was then advanced to the cecum difficulty. The TI and appendiceal orifice were identified. The prep was BBPS 3 in all segments for total of 9. The scope was then slowly retracted over 23 minutes back into the rectum. She had 3 polyps that are removed. She has 2 polyps at 70 cm. 1 is a flat 5 mm polyp that is removed with a cold biting forcep. The second polyp is a 1 cm pedunculated polyp that is removed with a cold snare. All sp ecimen is retrieved and no bleeding is noted. She also has a flat 5 mm polyp in the rectum that is removed with a cold biting forcep. All specimen is retrieved and no bleeding is noted. There is no diverticula visualized today. The mucosa is pink and healthy with a normal vascular pattern. The scope was removed and the patient was woken up and taken back to Same day surgery in stable condition. The patient tolerated the procedure well and there were no immediate complications. Follow up: The patient should follow up pending pathology unless they develop changes in bowel habits or other new gastrointestinal complaints.
--- NOTE | 2022-11-12 20:50 | PDOC.DSDIS_ITS ---
Date of service: 11/13/22 Time of Service: 11:02 Discharge Plan Disposition Patient Disposition: Home Discharge Details Reason For Visit: colon scope Attending Provider: Betty Crawford Primary Care Provider: Terry Leung Home Meds and New Rx's Prescriptions: No Action polyethylene glycol 3350 17 gram/dose powder 238 g PO ONCE Qty: 238 0RF Rx Instructions: take per colonoscopy instructions bisacodyl [Dulcolax (bisacodyl)] 5 mg tablet,delayed release (DR/EC) 5 mg PO ONCE Qty: 4 0RF Rx Instructions: take per colonoscopy instructions acetaminophen 500 mg tablet 1,000 mg PO TID Qty: 90 0RF ibuprofen 600 mg tablet 600 mg PO TID PRN (Reason: pain) Qty: 90 0RF Discharge Instructions Additional Instructions: DSU Colonoscopy Post- Op Instructions Instructions for Everyone who is given Anesthesia: For your safety, please do the following for the next twenty-four (24) hours: *Do Not operate a motor vehicle (car, truck, motorcycle, etc.) *Do Not drink alcoholic beverages or use any recreational drugs for the first 24 hours or while taking pain medications. The medications in your body may have a reaction that can be dangerous. *Do Not make any important decisions or sign any important papers. Findings: x3 polyps -No ASA/NSAID's for 72 hrs Follow up: -My office will send you copy of the path report in 2 to 3 weeks time. Most likely we will repeat colonoscopy in 5 years. 1. No lifting over 20 pounds or strenuous activity for the first 24 hours after your procedure. After 24 hours there are no restrictions on your activity but you may feel fatigued for a few days. 2. After you arrive home you may have a light meal and return to your normal diet as you can tolerate it without feeling sick to your stomach. 3. You may have a bloated, gaseous feeling in your belly (abdomen) after a colonoscopy. Passing gas and belching will help. Walking or lying down on your left side with your knees flexed may relieve the discomfort. Call the office at [phone] (Office) or [phone] (Hospital) right away if you notice any of the following: a.Vomiting of blood or ?coffee ground stools?. b.Rectal bleeding 1Tbsp, blood clots or continuous bleeding. c.Severe belly (abdominal) pain. d.A hard distended belly (abdomen) and an inability to pass gas. 4. Please don?t expect to have a normal BM (bowel movement) for 2-3 days after your procedure. 5. If there are questions regarding the findings of your procedure, please contact your doctor 6. If you are unable to contact your doctor with a problem, contact the hospital at [phone]. 7. Continue all your regular medications unless directed otherwise. I understand the above instructions and have no questions. Signature of Patient or Adult Escort Name of Responsible Adult Escort Signature of Nurse Date/Time Activity:: see above Diet:: see above Discharge Orders Discharge Orders: Discharge Order (Routine); Ordered 11/13/22 Ordered By: Betty Crawford DS: Diagnosis Discharge Diagnosis (1) Family history of colon cancer in mother: Status: Acute (2) Tubular adenoma of colon: Status: Chronic Asessment and Plan: The patient is seen and examined after their colonoscopy.? The patient has been able to pass gas.? They are not having abdominal pain.? They have been able to tolerate liquids and a snack.? They do not have any nausea or vomiting.? They are not having any chest pain or shortness of breath.??? They are not having any rectal bleeding. Their vital signs have been stable-see nursing notes. We discussed findings during their colonoscopy, and any biopsies that were done/polyps that were removed. The patient will be sent a letter with any biopsy results, and when to repeat the colonoscopy.-see discharge instructions. Patient was given explicit instructions to follow-up regarding colonoscopy-refer to discharge instructions.? We reviewed resumption of medications. Patient verbalized understanding and discharged in stable and satisfactory condition- See nursing notes.
[2022-11-13 09:18] VITALS: BP 135/85; PULSE 100; RESP 18; TEMP 36.6; O2SAT 98
[2022-11-13] MEDS: Lactated Ringers 1,000 ML 80 ML IV (09:33)
--- NOTE | 2022-11-13 09:56 | W.ANESPRE ---
General Info Date of Service Date Performed: 11/13/22 Height: 5 ft 8 in Weight: 79.1 kg Body Mass Index (BMI): 26.5 Surgical Procedure: Operation Date: 11/13/22 09:50 Proposed Procedure Side Surgeon p Colonoscopy Betty Crawford DO Actual Procedure Side Surgeon p Colonoscopy Not Applicable Betty Crawford DO Pre-Op Diagnosis Post-Op Diagnosis SCREENING Meds Allergies and Home Medications Allergies Allergy/AdvReac Type Severity Reaction Status Date / Time epinephrine Allergy Severe heart Verified 11/13/22 09:26 racing & pressure Sulfa (Sulfonamide Allergy Mild RASH Verified 11/13/22 09:26 Antibiotics) Home Medication Medication Instructions Recorded acetaminophen 500 mg tablet 1,000 mg PO TID #90 tabs 05/20/22 ibuprofen 600 mg tablet 600 mg PO TID PRN pain #90 tabs 05/20/22 bisacodyl 5 mg tablet,delayed 5 mg PO ONCE colonscopy bowel prep 10/29/22 release (Dulcolax (bisacodyl)) #4 tabs polyethylene glycol 3350 17 238 g PO ONCE colonoscopy prep 10/29/22 gram/dose oral powder #238 grams Current Visit Medications: Current Medications Generic Name Dose Route Start Last Admin Trade Name Freq PRN Reason Stop Dose Admin Hyoscyamine Sulfate 0.125 mg 11/12/22 21:00 Hyoscyamine 0.125 Mg Sl/Oral/Chew SL 12/12/22 20:59 PREOP KEENAN Ringer's Solution 1,000 mls @ 80 mls/hr 11/13/22 06:00 11/13/22 09:33 IV 11/13/22 23:59 80 mls/hr INFUSION KEENAN Administration IV Miscellaneous Supplies 1 each 11/13/22 06:00 Iv Access IV 11/13/22 23:59 DIRECTED KEENAN Ondansetron HCl 4 mg 11/13/22 08:18 Ondansetron 4 Mg/2 Ml Vial IVP 12/13/22 08:17 Q4H PRN PRN Nausea / Vomiting Sodium Chloride 0 ml 11/13/22 06:00 Normal Saline Flush 10 Ml Syr IV 11/13/22 23:59 PRN PRN Sodium Chloride 0 ml 11/13/22 06:00 Normal Saline 10 Ml Vial IJ 11/13/22 23:59 DIRECTED PRN Sterile Water 0 ml 11/13/22 06:00 Water,Injection,Sterile 10 Ml Vial IJ 11/13/22 23:59 DIRECTED PRN PFSH Active Problems Active Problems: Problem Status Onset Code Contusion of right ankle 09/28/22 S90.01XA Family history of colon cancer in mother Z80.0 Nondisplaced fracture of right scaphoid bone 09/28/22 S62.001A History of arthroscopy of right knee Z98.890 Tear of lateral meniscus of right knee S83.281A Chondromalacia, right knee M94.261 Anxiety 07/16/15 F41.9 Depressive disorder 09/08/11 F32.9 Kidney stones 07/16/15 N20.0 Tubular adenoma of colon 04/13/16 D12.6 Varicose veins of right lower extremity I83.91 Increased body mass index (BMI) R63.8 Screening for hyperlipidemia Z13.220 Medical History Medical History Anxiety Depression Hallux rigidus of left foot Hx of renal calculi Injury of intrinsic muscle of finger Otitis externa Sprain of foot, left Tubular adenoma of colon Medical History Comments:: Last surgery done 09/19/21 with Reid kwok did anesthesia, and was the only one who was able to provide her with anesthesia where she wasn't nauseous. Please reference anesthesia record from that date Surgical History Surgical History Cataract extraction status, left eye (~03/14/18) 03/14/18 [facility] Cholecystectomy Colonoscopy - MAC (04/13/16) Extraction of cataract (~2010) LEFT EYE Hx of foot surgery left Ligation of fallopian tube Tobacco Smoking/Tobacco Use Status: Former Tobacco Use Passive smoking exposure: No Second hand exposure: No Alcohol Alcohol Intake: current Alcohol intake frequency: holidays/special occasions only Alcohol type: wine Substance Use Substance use: Never Substance use type: does not use Counseling provided: none Prental History History 4 Para 2 Hx # Term Pregnancies Multiple births Hx # Pregnancies Ectopic pregnancies AB induced Hx Number of Living Children AB spontaneous Vital Signs and Lab Results Vital Signs Most Recent Vital Signs in EMR: Most Recent Vital Signs Temp Pulse Resp BP Pulse Ox 36.6 C 100 H 18 135/85 98 08/18/23 09:18 11/13/22 09:18 11/13/22 09:18 11/13/22 09:18 11/13/22 09:18 Lab Results Blood Type / Crossmatch: No Data to Display Complete Blood Count: White Blood Count 8.08 10^3/uL (4.4-10.8) 11/05/22 08:00 Red Blood Count 4.91 10^6/uL (3.93-5.22) 11/05/22 08:00 Hemoglobin 14.3 g/dL (11.2-15.7) 11/05/22 08:00 Hematocrit 42.2 % (36.0-46.0) 11/05/22 08:00 Platelet Count 330 10^3/uL (130-400) 11/05/22 08:00 Complete Metabolic Panel: No Data to Display Liver Function Panel: No Data to Display Coagulation Panel: No Data to Display Cardiac Panel: No Data to Display Arterial Blood Gas: No Data to Display Venous Blood Gas: No Data to Display Pancreas Panel: No Data to Display Thyroid Panel: No Data to Display Infectious Disease: No Data to Display Blood Cultures: No Data to Display Toxicology Panel: No Data to Display Anesthesia Assessment and Plan Anesthesia History Personal History: PONV Family History: No Family History of Anesthesia Complications Exercise Tolerance Exercise Tolerance: Metabolic Equivalents>4 Pertinent Negatives Pertinent Negatives: No Symptoms of GERD Cardiac & Pulmonary Exam Cardiac Exam: Normal S1/S2 Heart Sounds Pulmonary Exam: Clear Bilateral Breath Sounds Implantable Cardiac Device Does patient have a Pacemaker or an ICD?: No Airway Exam Known Difficult Airway: No Mallampati Class: 2 Mouth Opening: Normal (> 3cm) Thyromental Distance: Greater than 3 cm Neck Range of Motion: Full ROM Neck Circumference: Normal Teeth Condition: Normal Dentition ASA Classification ASA Score: ASA 2 Emergency Case?: No NPO Status NPO Status: NPO Clears >2 hours, Solids >8 hours Anesthesia Plan Resuscitation Status: Full Code Anesthesia Technique: General Anesthesia Airway Planned: Natural Airway Monitors Used: Standard Monitors
[2022-11-13 09:59] VITALS: BMI 26.5
--- NOTE | 2022-11-13 10:22 | BOWEL_PTH ---
PATIENT: Joanna Norton LOC: [facility] U#:[id number] AGE/SX: 62/F ROOM: RE11/13/[address]: Betty Crawford : 1960 BED: DIS: 11/13/2022 SPEC #: [id number] RECD: 11/13/22 17:56 STATUS: VICKI RE #: [id number] REHANA: 11/13/22 10:[address]: Betty Crawford DEPT: Surgical Specimen RECD BY: Argelia Lopez ENTERED: 11/13/22 17:56 SP TYPE: Bowel OTHR DR: Terry Phipps, BOBBY Tissues: 1 - BIOPSY BOWEL 2 - BIOPSY BOWEL Procedures: GROSS AND MICRO LEVEL 4 Comments: [id number]
[2022-11-13 10:50] VITALS: BP 92/49; PULSE 90; RESP 12; TEMP 36.1; O2SAT 96
--- NOTE | 2022-11-13 10:56 | W.ANESPOSTOP ---
Postoperative Evaluation Date, Time and Location Date Performed: 11/13/22 Time Performed: 10:56 Patient Location: Day Surgery Unit Vital Signs Most Recent Imported Vital Signs: Most Recent Vital Signs Temp Pulse Resp BP Pulse Ox 36.6 C 100 H 18 135/85 98 11/13/22 09:18 11/13/22 09:18 11/13/22 09:18 11/13/22 09:18 11/13/22 09:18 Pain Score Most Recent Pain Score: Most Recent Pain Score Pain Level 0 11/13/22 09:18 Assessment Mental Status: Arousable with meaningful communication Airway and Respiratory Function: Patent airway with normal (patient baseline) respiratory exam Cardiovascular Function: Hemodynamically Stable Hydration Status: Adequately Hydrated Nausea & Vomiting: No Nausea or Vomiting Pain: Pt. Denies Any Pain Peripheral Nerve Block: Patient did not receive a nerve block
[2022-11-13 11:25] VITALS: BP 121/82; PULSE 71; RESP 14; TEMP 36.2; O2SAT 96
== END 2022-11-13 12:00 | disposition home or self-care (01) ==
PROVIDERS: PCP Nurse Practitioner Family; Visit Provider Surgery
PROC: 0DJD8ZZ Inspection of Lower Intestinal Tract, Via Natural or Artificial Opening Endoscopic (ICD-10-PCS; CPT 45378; principal; 2022-11-13 09:45)
DX: Z12.11 Encounter for screening for malignant neoplasm of colon; Z80.0 Family history of malignant neoplasm of digestive organs; D37.4 Neoplasm of uncertain behavior of colon; K62.89 Other specified diseases of anus and rectum
CPT/HCPCS: 45385; 45380; 88305; J2001

== ENCOUNTER 2022-12-18 22:40 | Outpatient (REF) | payer BC, SELFPAY | END 2022-12-18 22:41 | disposition home or self-care (01) | LOC: LBN 22:40 | PROVIDERS: PCP Nurse Practitioner Family; Visit Provider Family Medicine | DX: N39.0 Urinary tract infection, site not specified (principal); R82.79 Other abnormal findings on microbiological examination of urine | CPT/HCPCS: 87077; 87086; 87186 ==

== ENCOUNTER 2022-12-30 08:55 | Outpatient (CLI) | payer BC, SELFPAY ==
--- NOTE | 2022-12-30 08:00 | DI.RAD_ITS ---
Exam(s) XR WRIST RT COMPLETE EXAM: XR WRIST RT COMPLETE CLINICAL HISTORY: right wrist f/u. TECHNIQUE: 2D digital imaging was performed. COMPARISON: CR XR WRIST RT COMPLETE from 10/14/2022 CR XR WRIST RT COMPL NAVICULAR from 11/10/2022 FINDINGS: Four views No evidence of acute fracture of distal radius and ulna and no significant ulnar variance. There is subtle irregularity at the waist of the scaphoid again noted although there does appear to be some he aling at this subtle fracture site. No displacement. Scapholunate distance is normal. Slight incre ased density is noted in the proximal half of the scaphoid IMPRESSION: Healing nondisplaced fracture at the waist of the scaphoid-navicular bone. There is subtle increased density in the proximal half of this bone. Follow-up to rule out neto GARZA recommended DATA REPOSITORY: RADIATION DOSE DELIVERED:
--- NOTE | 2022-12-30 08:00 | DI.RAD_ITS ---
Exam(s) XR ANKLE RT COMPLETE EXAM: XR ANKLE RT COMPLETE CLINICAL HISTORY: right ankle f/u. TECHNIQUE: 2D digital imaging was performed. COMPARISON: CR XR ANKLE RT COMPLETE from 11/10/2022 FINDINGS: 3 views Previously described finding in the distal fibula of again noted and most probably consistent with no ndisplaced fracture. There is no widening of the ankle mortise. Talar dome unremarkable. Medial an d posterior malleoli unremarkable. Small inferior calcaneal spur noted. There is no osseous tarsal coalition. IMPRESSION: Unchanged appearance from 11/10/2022. DATA REPOSITORY: RADIATION DOSE DELIVERED:
== END 2022-12-30 08:56 | disposition home or self-care (01) ==
LOC: DIORS 08:55
PROVIDERS: PCP Nurse Practitioner Family; Visit Provider Student in an Organized Health Care Education/Training Program
DX: S62.024D Nondisplaced fracture of middle third of navicular [scaphoid] bone of right wrist, subsequent encounter for fracture with routine healing (principal); X58.XXXD Exposure to other specified factors, subsequent encounter; S90.01XD Contusion of right ankle, subsequent encounter
CPT/HCPCS: 73110; 73610

== ENCOUNTER 2023-01-18 01:11 | Outpatient (CLI) | payer BC, SELFPAY ==
--- NOTE | 2023-01-18 13:07 | DI.RAD_ITS ---
Exam(s) XR FOOT RT COMPLETE EXAM: XR FOOT RT COMPLETE CLINICAL HISTORY: rt foot pain,m79.671. TECHNIQUE: 2D digital imaging was performed. COMPARISON: None FINDINGS: No evidence of fracture or diastasis of the Lisfranc joint. There is some soft tissue swelling lateral to the head of the 5th metatarsal. Head of the 5th metata rsal appears unremarkable. Great toe metatarsophalangeal joint exhibits mild degenerative changes, l ess than is evident on the opposite side. There is a small inferior calcaneal spur noted. Bone dens ity normal. No osseous lesions. No erosions. IMPRESSION: Mild findings as above. DATA REPOSITORY: RADIATION DOSE DELIVERED:
== END 2023-01-18 01:31 ==
LOC: DI 01:11
PROVIDERS: PCP Nurse Practitioner Family; Visit Provider Podiatrist
DX: M79.671 Pain in right foot (principal)
CPT/HCPCS: 73630

== ENCOUNTER 2023-02-01 10:50 | Outpatient (REF) | payer BC, SELFPAY ==
--- NOTE | 2023-02-01 09:00 | PAPFT_PTH ---
PATIENT: Joanna Norton LOC: JUAN U#:[id number] AGE/SX: 62/F ROOM: RE02/01/[address]: Zohra Wheeler MD : 1960 BED: DIS: 02/01/2023 SPEC #: [id number] RECD: 02/01/23 12:58 STATUS: VICKI REAle #: [id number] REHANA: 02/01/23 09:[address]: Zohra Wheeler DEPT: [facility] Cytology RECD BY: Santa Booker ENTERED: 02/01/23 12:59 SP TYPE: PAPFT OT DR: Terry Phipps, BOBBY Tissues: 1 - CX/ENDOCX FOR PAP SMEARS Procedures: PAP THIN PREP/[facility] Screening Comments: [id number] (UNSATISFACTORY FOR EVALUATION)
== END 2023-02-01 10:51 | disposition home or self-care (01) ==
LOC: LBN 10:50
PROVIDERS: PCP Nurse Practitioner Family; Visit Provider Obstetrics & Gynecology
DX: R30.0 Dysuria (principal)
CPT/HCPCS: 87077; 88142; 87086; 87186

== ENCOUNTER → 2023-02-01 11:37 | Outpatient (CLI) | payer BC, SELFPAY ==
--- NOTE | 2023-02-01 15:12 | DI.RAD_ITS ---
Exam(s) XR ABDOMEN FLAT PLATE EXAM: 2D digital imaging was performed. CLINICAL HISTORY: monitor known kidney stones,n20.0. COMPARISON: CR XR ABDOMEN FLAT PLATE from 04/28/2022 TECHNIQUE: Supine views of the abdomen was performed. Two images were obtained. FINDINGS: LUNG BASES: Clear. BOWEL GAS PATTERN: Nondistended. There is a moderate amount of stool in the colon. FREE AIR: None. CALCIFICATIONS: There is again seen an almost 2 cm calcification overlying the lower pole of the righ t kidney. There also 2 small calcifications overlying the lower pole of the left kidney. These are all stable. Phleboliths are seen in the pelvis. These are stable. OSSEOUS STRUCTURES: Normal for age. OTHER FINDINGS: Surgical clips are seen in the right upper quadrant likely reflecting prior cholecyst ectomy. IMPRESSION: Bilateral nephrolithiasis. DATA REPOSITORY: RADIATION DOSE DELIVERED:
== END ==
PROVIDERS: PCP Nurse Practitioner Family; Visit Provider Urology
DX: N20.0 Calculus of kidney (principal)
CPT/HCPCS: 74018

== ENCOUNTER 2023-02-24 09:13 | Outpatient (CLI) | payer BC, SELFPAY ==
--- NOTE | 2023-02-24 08:15 | DI.RAD_ITS ---
Exam(s) XR WRIST RT COMPLETE EXAM: XR WRIST RT COMPLETE CLINICAL HISTORY: F/U FRACTURE. TECHNIQUE: 2D digital imaging was performed of the right wrist. Five views were obtained. Scaphoid, PA, lateral and oblique views were obtained. COMPARISON: CR [id number] PA/LAT/OBL(3)V [id number] from 09/28/2022 CR XR WRIST RT COMPLETE from 12/30/2022 FINDINGS: BONES: The scaphoid fracture appears healed. No acute fracture or dislocation is seen. No bony dest ructive lesion is seen. JOINTS: The carpal bones are normally aligned. SOFT TISSUE: Normal. IMPRESSION: No acute abnormality. If further evaluation of the old scaphoid fractures needed, CT scan may be obt ained. DATA REPOSITORY: RADIATION DOSE DELIVERED:
== END 2023-02-24 09:14 | disposition home or self-care (01) ==
LOC: DIORS 09:13
PROVIDERS: PCP Nurse Practitioner Family; Visit Provider Student in an Organized Health Care Education/Training Program
DX: S62.024D Nondisplaced fracture of middle third of navicular [scaphoid] bone of right wrist, subsequent encounter for fracture with routine healing (principal); X58.XXXD Exposure to other specified factors, subsequent encounter
CPT/HCPCS: 73110

== ENCOUNTER 2023-03-04 09:09 | Outpatient (REF) | payer BC, SELFPAY ==
--- NOTE | 2023-03-04 08:40 | PAPFT_PTH ---
PATIENT: Joanna Norton LOC: JUAN U#:[id number] AGE/SX: 63/F ROOM: RE03/04/[address]: Zohra Wheeler MD : 1960 BED: DIS: 03/04/2023 SPEC #: [id number] RECD: 03/04/23 12:45 STATUS: VICKI REAle #: [id number] REHANA: 03/04/23 08:[address]: Zohra Wheeler DEPT: [facility] Cytology RECD BY: Santa Booker ENTERED: 03/04/23 12:45 SP TYPE: PAPFT OTHR DR: Terry Phipps, BOBBY Tissues: 1 - CX/ENDOCX FOR PAP SMEARS Procedures: PAP THIN PREP/[facility] Screening HPV DNA PROBE Comments: [id number]
== END 2023-03-04 09:10 | disposition home or self-care (01) ==
LOC: LBN 09:09
PROVIDERS: PCP Nurse Practitioner Family; Visit Provider Obstetrics & Gynecology
DX: Z12.4 Encounter for screening for malignant neoplasm of cervix (principal)
CPT/HCPCS: 88142; 87624

== ENCOUNTER 2023-04-09 21:09 | Outpatient (REF) | payer BC, SELFPAY ==
[2023-04-09 21:34] LABS: Bilirubin Negative (Negative); Blood Negative (Negative); Clarity Clear (Clear); Glucose Negative (Negative); Ketones Negative (Negative); Leukocyte Esterase Negative (Negative); Nitrite Negative (Negative); Urobilinogen 0.2 mg/dL (Up to 0.2); pH 6.5 (5-8)
== END 2023-04-09 21:10 | disposition home or self-care (01) ==
LOC: LBN 21:09
PROVIDERS: PCP Nurse Practitioner Family; Visit Provider Physician Assistant
DX: N39.0 Urinary tract infection, site not specified (principal)
CPT/HCPCS: 87077; 81003; 87086; 87186

== ENCOUNTER → 2023-05-03 01:49 | Outpatient (CLI) | payer BC, SELFPAY ==
--- NOTE | 2023-05-03 07:30 | DI.MAMMO_ITS ---
Exam(s) MAMMO SCREENING EXAM: MAMMO SCREENING CLINICAL HISTORY: screening. TECHNIQUE: Bilateral full field digital CC and MLO mammographic images were obtained with 3D tomosyn thesis and utilizing computer aided detection (CAD). COMPARISON: Prior mammograms were reviewed. FINDINGS: There has been no significant change in the appearance and distribution of the fibroglandular tissue. There are no new spiculated masses nor malignant appearing microcalcification groups. There is no significant architectural distortion nor skin thickening-retraction. IMPRESSION: No radiographic evidence of malignancy. BI-RADS Category 1 - Negative Breast Density - Category C - Heterogeneously dense Breast density Category C or D implies that the patient has dense breast tissue. Dense breast tissue can make it harder to find cancer on a mammogram. Dense breast tissue is also associated with an incr eased risk of breast cancer. This information about the result of the mammogram report was provided to the patient to raise their awareness. Use this report when you speak with the patient about their risks for breast cancer, which includes their family history. At that time, you may recommend additional screening tests (Ultrasoun d or MRI) as these tests may add significant information. A negative radiographic report should not delay biopsy if a dominant or clinically suspicious mass is present. Up to ten percent of cancers are not identified on mammography. A negative report may reinforce clinical impression. Adenosis and dense breasts may obscure an underlying neoplasm. False positive reports average 6 to 10%. Patient will receive a letter notifying them of these results.
== END ==
PROVIDERS: PCP Nurse Practitioner Family; Visit Provider Obstetrics & Gynecology
DX: Z12.31 Encounter for screening mammogram for malignant neoplasm of breast (principal); R92.333 Mammographic heterogeneous density, bilateral breasts
CPT/HCPCS: 77063; 77067

== ENCOUNTER 2023-05-06 02:10 | Outpatient (CLI) | payer BC, SELFPAY ==
[2023-05-06 12:27] LABS: Anion Gap 8.8 mmol/L (3-11); BUN 19 mg/dL (7-18); CO2 28.2 mmol/L (21.0-32.0); CREATININE 0.7 mg/dL (0.55-1.02); Calcium 8.8 mg/dL (8.5-10.1); Chloride 104 mmol/L (98-107); Estimated GFR 98.34 (mL/min/1.73m2); Glucose 96 mg/dL (74-106); Potassium 3.9 mmol/L (3.5-5.1); Sodium 141 mmol/L (136-145)
[2023-05-06 18:54] LABS: Hepatitis C Ab w Rflx HCV PCR Negative (Negative)
[2023-05-06 19:00] LABS: HIV-1/2 Ag & Ab Screen Negative (Negative)
== END 2023-05-06 02:11 | disposition home or self-care (01) ==
LOC: LOS 02:10
PROVIDERS: PCP Nurse Practitioner Family; Visit Provider Nurse Practitioner Family
DX: N39.0 Urinary tract infection, site not specified (principal); Z11.59 Encounter for screening for other viral diseases; Z11.4 Encounter for screening for human immunodeficiency virus [HIV]
CPT/HCPCS: 36415; 80048; 86803; 87389

== ENCOUNTER 2023-05-20 06:18 | Day surgery (SDC) | payer BC, SELFPAY ==
[2023-05-20 06:46] VITALS: BP 126/75; PULSE 61; RESP 16; TEMP 36.6; O2SAT 100
--- NOTE | 2023-05-20 06:53 | HPE_ITS ---
Date of service: 05/20/23 Time of Service: 06:53 Assessment and Plan Assessment and plan (1) Recurrent UTI (urinary tract infection): Status: Acute Assessment and plan: Her upper tract imaging shows stable kidney stone disease. We will plan a cystoscopy to evaluate her lower urinary tract. History of Present Illness History of Present Illness Chief Complaint: Recurrent UTI Narrative: This is a 63-year-old woman who has a history of kidney stones. She had a renal ultrasound and a KUB in January which indicated that her stones were stable in both location and size. She has had recurrent episodes of E. coli urinary tract infections dating back to November. Her symptoms improve with antibiotics but then recur soon thereafter. She develops suprapubic pain but no real flank pain. She notices the discomfort is most often at the beginning and end of her urinary stream. She does not have actual dysuria during the stream. She is not seeing any gross hematuria. She has no fevers or chills. She has no bowel dysfunction or urinary incontinence. She is not on any type of hormone replacement therapy Review of Systems Narrative: No fevers or chills No vision change or dysphasia No diabetes or thyroid dysfunction No shortness of breath, cough or hemoptysis No chest pain or palpitations No nausea, vomiting, hepatitis, ulcers, jaundice No seizures, strokes or peripheral neuropathy No bleeding disorders or anemia No gout PFSH All Active Problems Recurrent UTI (urinary tract infection) (Acute) Kidney stones (Acute 07/16/15) Dystrophy of nail due to trauma (Acute) Achilles tendon contracture, right (Acute) Tailor's bunionette, right (Acute) Allodynia (Acute) 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, right knee (Acute) Villous adenoma of colon (Acute ~10/2022) Medical History Contusion of right ankle (09/28/22) Family history of colon cancer in mother Nondisplaced fracture of right scaphoid bone (09/28/22) Tear of lateral meniscus of right knee DEPO MEDROL 06/15/22 Hallux rigidus of left foot Injury of intrinsic muscle of finger Tubular adenoma of colon Hx of renal calculi followed by dr carson & Dr Shine now right kidney stone 13mm left kidney stone 4mm Depression Anxiety Surgical History History of arthroscopy of right knee DOS: 05/20/22 Hx of foot surgery left Cataract extraction status, left eye (~03/14/18) 03/14/18 [facility] Ligation of fallopian tube Colonoscopy - MAC (10/2022) 04/13/2016 Cholecystectomy Extraction of cataract (~2010) LEFT EYE Family History Mother No problems noted. Father Guillain-Cisco Brother Kidney stone Sister No problems noted. Daughter No problems noted. Daughter No problems noted. Social History Smoking/Tobacco Use Status: Former Tobacco Use tobacco type: cigarettes Quit Date: 03/29/91 Second Hand Exposure: No Smoking risk assessment performed?: Yes Alcohol Intake: current Alcohol Intake frequency: holidays/special occasions only Alcohol type: wine Drug use: Never Substance use type: does not use Counseling given: No Counseling provided: none Housing: house Number of Children: 2 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 Pets and animals: cat(s) Sexually active: Yes Do you think of yourself as: straight/heterosexual Current gender identity: female What is your relationship status?: How often do you talk on the phone with friends or family?: once per week How often do you get together with friends or relatives?: once per week How often do you attend yazidism or zoroastrianism services?: 1-3 times per year Do you belong to any clubs or organized social groups?: yes Panel score (0-1 are the most socially isolated patients): 2 What type of physical activity do you participate in: walking Duration: 30-45 minutes/day Frequency: 5-6 times per week Gabby/Sikhism: Gnosticist Seatbelt use: always Helmet use: Yes Helmet use: always Drive intox or ride w/intox explosives truck driver: No Do you feel safe at home: Yes Do you feel safe in your relationship?: Yes Additional Social history: unable with assess privately Female Reproductive History Menstrual Date of menopause: 03/29/06 History History 4 Para 2 Hx # Term Pregnancies Multiple births Hx # Pregnancies Ectopic pregnancies AB induced Hx Number of Living Children AB spontaneous Meds Allergies and Home Medications Allergies Allergy/AdvReac Type Severity Reaction Status Date / Time epinephrine Allergy Severe heart Verified 05/20/23 06:42 racing & pressure Sulfa (Sulfonamide Allergy Mild RASH Verified 05/20/23 06:42 Antibiotics) Home Medications Medication Instructions Recorded Confirmed Type acetaminophen 500 mg tablet 1,000 mg (2 x 500 mg) PO TID #90 05/20/22 05/20/23 Rx tabs ibuprofen 600 mg tablet 600 mg PO TID PRN pain #90 tabs 05/20/22 05/20/23 Rx trimethoprim 100 mg tablet 100 mg PO QHS #30 tabs 04/16/23 05/20/23 Rx Exam Const General: cooperative and no acute distress Neck Neck: supple Resp Effort & Inspection: normal respiratory effort Auscultation: clear to auscultation bilaterally Cardio Rate: regular rate Rhythm: regular rhythm GI Palpation: no masses Neuro General: patient alert, patient awake and patient oriented x3 Time Spent Time spent with Patient: <40 minutes Time was spent: other
[2023-05-20] MEDS: Lactated Ringers 1,000 ML 80 ML IV (06:55)
[2023-05-20 07:31] VITALS: BMI 26.6
--- NOTE | 2023-05-20 07:31 | W.ANESPRE ---
General Info Date of Service Date Performed: 05/20/23 Height: 5 ft 8 in Weight: 79.5 kg Body Mass Index (BMI): 26.6 Surgical Procedure: Operation Date: 05/20/23 07:40 Proposed Procedure Side Surgeon p Cystoscopy with Possible Biopsy & Fulguration Travon Shine MD Actual Procedure Side Surgeon p Cystoscopy with Possible Biopsy & Fulguration Travon Shine MD Meds Allergies and Home Medications Allergies Allergy/AdvReac Type Severity Reaction Status Date / Time epinephrine Allergy Severe heart Verified 05/20/23 06:42 racing & pressure Sulfa (Sulfonamide Allergy Mild RASH Verified 05/20/23 06:42 Antibiotics) Home Medication Medication Instructions Recorded acetaminophen 500 mg tablet 1,000 mg (2 x 500 mg) PO TID #90 05/20/22 tabs ibuprofen 600 mg tablet 600 mg PO TID PRN pain #90 tabs 05/20/22 trimethoprim 100 mg tablet 100 mg PO QHS #30 tabs 04/16/23 Current Visit Medications: Current Medications Generic Name Dose Route Start Last Admin Trade Name Freq PRN Reason Stop Dose Admin Ringer's Solution 1,000 mls @ 80 mls/hr 05/20/23 06:00 05/20/23 06:55 IV 05/20/23 23:59 80 mls/hr INFUSION KEENAN Administration Cefazolin Sodium/Dextrose 2 gm in 50 mls @ 100 mls/hr 05/20/23 06:00 Ancef Duplex IVPB 05/20/23 23:59 PREOP KEENAN IV Miscellaneous Supplies 1 each 05/20/23 06:00 Iv Access IV 05/20/23 23:59 DIRECTED KEENAN Sodium Chloride 0 ml 05/20/23 06:00 Normal Saline Flush 10 Ml Syr IV 05/20/23 23:59 PRN PRN Sodium Chloride 0 ml 05/20/23 06:00 Normal Saline 10 Ml Vial IJ 05/20/23 23:59 DIRECTED PRN Sterile Water 0 ml 05/20/23 06:00 Water,Injection,Sterile 10 Ml Vial IJ 05/20/23 23:59 DIRECTED PRN PFSH Active Problems Active Problems: Problem Status Onset Code Recurrent UTI (urinary tract infection) N39.0 Kidney stones 07/16/15 N20.0 Dystrophy of nail due to trauma L60.3 Achilles tendon contracture, right M67.01 Tailor's bunionettdominga, right M21.621 Allodynia R20.8 Varicose veins of right lower extremity I83.91 Chondromalacia, right knee M94.261 Villous adenoma of colon ~10/2022 D37.4 Medical History Medical History Contusion of right ankle (09/28/22) Family history of colon cancer in mother Nondisplaced fracture of right scaphoid bone (09/28/22) Tear of lateral meniscus of right knee DEPO MEDROL 06/15/22 Hallux rigidus of left foot Injury of intrinsic muscle of finger Tubular adenoma of colon Hx of renal calculi followed by dr carson & Dr Shine now right kidney stone 13mm left kidney stone 4mm Depression Anxiety Medical History Comments:: pt. reports last two times went well, no NV. Pt. states what ever Reid did worked. Surgical History Surgical History History of arthroscopy of right knee DOS: 05/20/22 Hx of foot surgery left Cataract extraction status, left eye (~03/14/18) 03/14/18 [facility] Ligation of fallopian tube Colonoscopy - MAC (10/2022) 04/13/2016 Cholecystectomy Extraction of cataract (~2010) LEFT EYE Tobacco Smoking/Tobacco Use Status: Former Tobacco Use Passive smoking exposure: No Second hand exposure: No Alcohol Alcohol Intake: current Alcohol intake frequency: holidays/special occasions only Alcohol type: wine Substance Use Substance use: Never Substance use type: does not use Counseling provided: none Prental History History 4 Para 2 Hx # Term Pregnancies Multiple births Hx # Pregnancies Ectopic pregnancies AB induced Hx Number of Living Children AB spontaneous Vital Signs and Lab Results Vital Signs Most Recent Vital Signs in EMR: Most Recent Vital Signs Temp Pulse Resp BP Pulse Ox 36.6 C 61 16 126/75 100 05/20/23 06:46 05/20/23 06:46 05/20/23 06:46 05/20/23 06:46 05/20/23 06:46 Lab Results Blood Type / Crossmatch: No Data to Display Complete Blood Count: No Data to Display Complete Metabolic Panel: Sodium 141 mmol/L (136-145) 05/06/23 08:03 Potassium 3.9 mmol/L (3.5-5.1) 05/06/23 08:03 Chloride 104 mmol/L (98-107) 05/06/23 08:03 Carbon Dioxide 28.2 mmol/L (21.0-32.0) 05/06/23 08:03 BUN 19 mg/dL (7-18) H 05/06/23 08:03 Creatinine 0.7 mg/dL (0.55-1.02) 05/06/23 08:03 Est GFR (CKD-EPI 2020) 98.34 (mL/min/1.73m2) 05/06/23 08:03 Calcium 8.8 mg/dL (8.5-10.1) 05/06/23 08:03 Glucose 96 mg/dL (74-106) 05/06/23 08:03 Liver Function Panel: No Data to Display Coagulation Panel: No Data to Display Cardiac Panel: No Data to Display Arterial Blood Gas: No Data to Display Venous Blood Gas: No Data to Display Pancreas Panel: No Data to Display Thyroid Panel: No Data to Display Infectious Disease: HIV (1&2) Ag and Ab, 4th Generation Negative (Negative) 05/06/23 08:03 Hepatitis C Antibody Negative (Negative) 05/06/23 08:03 Blood Cultures: No Data to Display Toxicology Panel: No Data to Display Anesthesia Assessment and Plan Anesthesia History Personal History: PONV Family History: No Family History of Anesthesia Complications Exercise Tolerance Exercise Tolerance: Metabolic Equivalents>4 Pertinent Negatives Pertinent Negatives: No Symptoms of GERD, No Major Cardiovascular Symptoms or Complaints, No Major Pulmonary Symptoms or Complaints and No History of CVA/TIA Cardiac & Pulmonary Exam Cardiac Exam: Normal S1/S2 Heart Sounds Pulmonary Exam: Clear Bilateral Breath Sounds Implantable Cardiac Device Does patient have a Pacemaker or an ICD?: No Airway Exam Known Difficult Airway: No Mallampati Class: 3 Mouth Opening: Normal (> 3cm) Thyromental Distance: Greater than 3 cm Neck Range of Motion: Full ROM Neck Circumference: Normal Teeth Condition: Normal Dentition ASA Classification ASA Score: ASA 2 Emergency Case?: No NPO Status NPO Status: NPO Clears >2 hours, Solids >8 hours Anesthesia Plan Resuscitation Status: Full Code Anesthesia Technique: General Anesthesia Airway Planned: Natural Airway Monitors Used: Standard Monitors and SedLine
[2023-05-20] MEDS: ceFAZolin 2 GM/50 ML BAG IVPB (07:48)
[2023-05-20] MEDS: Lidocaine 2% Jelly 11 ML SYR (07:55)
--- NOTE | 2023-05-20 08:00 | W.PM.DSUDISC ---
Date of service: 05/20/23 Time of Service: 08:00 Discharge Plan Disposition Patient Disposition: Home Condition: Stable Discharge Details Reason For Visit: cystoscopy Attending Provider: Travon Shine Primary Care Provider: Terry Leung Home Meds and New Rx's Prescriptions: New estradiol [Estrace] 0.01 % (0.1 mg/gram) cream 2 g vaginal .twice weekly Qty: 42.5 1RF No Action trimethoprim 100 mg tablet 100 mg PO QHS Qty: 30 1RF acetaminophen 500 mg tablet 1,000 mg PO TID Qty: 90 0RF ibuprofen 600 mg tablet 600 mg PO TID PRN (Reason: pain) Qty: 90 0RF Discharge Instructions Additional Instructions: restart trimethoprim new prescription for estrace vaginal cream sent to pharmacy followup 1 to 2 months Activity:: Activity as Tolerated Shower/Bathe:: 24 hours Diet:: As Tolerated Discharge Orders Discharge Orders: Discharge Order (Routine); Ordered 05/20/23 Ordered By: Travon Shine DS: Diagnosis Discharge Diagnosis (1) Recurrent UTI (urinary tract infection): Status: Acute
--- NOTE | 2023-05-20 08:05 | W.PM.OP ---
Date of service: 05/20/23 Time of Service: 08:05 Operative Note Operative Note DATE OF PROCEDURE: 05/20/23 PRE-OP DIAGNOSIS: Recurrent UTI POST-OP DIAGNOSIS: same PROCEDURE: cystoscopy SURGEON: Travon Shine ANESTHESIA TYPE: Local By Surgeon and General:No Airway Refer to Anesthesia Record ESTIMATED BLOOD LOSS: 5 PATHOLOGY: none sent COMPLICATIONS: None Patient was transported to: same day Patient's condition: stable Implants: none Indications: This is a 63-year-old woman who has a history of recurrent E. coli urinary tract infections. She had imaging of her upper tracts and she has known kidney stones which have been unchanged in position or size. She had no hydronephrosis. All of her symptoms are suggestive of cystitis rather than pyelonephritis. She presents now for cystoscopy to evaluate the lower urinary tract Findings: normal bladder Procedure Description: The patient was given preoperative antibiotics and brought to the operating room on 05/20/2023. After successful induction of general anesthesia, she was placed in the dorsal lithotomy position. Her genitalia was prepped and draped sterilely. 2% Xylocaine jelly was instilled into the urethra to act as a local anesthetic. A 22 [place] rigid cystoscope was passed through the urethra into the bladder. The bladder and urethra were inspected using both the 30 and 70 degree lens. Both ureteral orifices appeared normal with no blood coming from either side. No papillary or nodular lesions were seen within the bladder. No stones were present and there were no diverticuli. The findings were confirmed on reinspection of the bladder with a 70 degree lens. With no significant uropathology identified, the bladder was emptied and the scope was removed The patient tolerated this procedure well with no complications.
[2023-05-20 08:10] VITALS: BP 104/64; PULSE 78; RESP 16; TEMP 36.3; O2SAT 95
--- NOTE | 2023-05-20 08:18 | W.ANESPOSTOP ---
Postoperative Evaluation Date, Time and Location Date Performed: 05/20/23 Time Performed: 08:10 Patient Location: Day Surgery Unit Vital Signs Most Recent Imported Vital Signs: Temp Pulse Resp BP Pulse Ox 36.2 C L 66 16 107/55 L 94 05/20/23 08:31 05/20/23 08:31 05/20/23 08:31 05/20/23 08:31 05/20/23 08:31 Pain Score Most Recent Pain Score: Most Recent Pain Score Pain Level 0 05/20/23 08:10 Assessment Mental Status: Arousable with meaningful communication Airway and Respiratory Function: Patent airway with normal (patient baseline) respiratory exam Cardiovascular Function: Hemodynamically Stable Hydration Status: Adequately Hydrated Nausea & Vomiting: No Nausea or Vomiting Pain: Pt. Denies Any Pain Peripheral Nerve Block: Patient did not receive a nerve block
[2023-05-20 08:31] VITALS: BP 107/55; PULSE 66; RESP 16; TEMP 36.2; O2SAT 94
[2023-05-20] MEDS: Phenazopyridine 200 MG TAB PO (08:42)
== END 2023-05-20 09:16 | disposition home or self-care (01) ==
PROVIDERS: PCP Nurse Practitioner Family; Visit Provider Urology
PROC: 0TBB8ZX Excision of Bladder, Via Natural or Artificial Opening Endoscopic, Diagnostic (ICD-10-PCS; CPT 52204; principal; 2023-05-20 07:30)
DX: N39.0 Urinary tract infection, site not specified (principal); N20.0 Calculus of kidney
CPT/HCPCS: 52000; J0690; J1100; J1885; J2001; J2250; J2405; J2704

== ENCOUNTER 2024-02-08 10:14 | Outpatient (REF) | payer BC, SELFPAY ==
--- NOTE | 2024-02-08 10:11 | PAPFT_PTH ---
PATIENT: Joanna Norton LOC: JUAN U#:[id number] AGE/SX: 63/F ROOM: RE02/08/[address]: Zohra Wheeler MD : 1960 BED: DIS: 02/08/2024 SPEC #: [id number] RECD: 02/08/24 12:47 STATUS: VICKI REQ #: [id number] REHANA: 02/08/24 10:[address]: Zohra Wheeler DEPT: [facility] Cytology RECD BY: Santa Booker ENTERED: 02/08/24 12:47 SP TYPE: PAPFT OTHR DR: Terry Phipps, BOBBY Tissues: 1 - CX/ENDOCX FOR PAP SMEARS Procedures: PAP THIN PREP/[facility] Screening HPV DNA PROBE Comments: [id number] (HPV 16 & 18/45)
== END 2024-02-08 10:15 | disposition home or self-care (01) ==
LOC: LBN 10:14
PROVIDERS: PCP Nurse Practitioner Family; Visit Provider Obstetrics & Gynecology
DX: Z11.51 Encounter for screening for human papillomavirus (HPV) (principal); Z01.419 Encounter for gynecological examination (general) (routine) without abnormal findings
CPT/HCPCS: 88142; 87624

== ENCOUNTER 2024-02-11 09:25 | Outpatient (REF) | payer BC, SELFPAY | END 2024-02-11 09:26 | disposition home or self-care (01) | LOC: LBN 09:25 | PROVIDERS: PCP Nurse Practitioner Family; Visit Provider Physician Assistant | DX: R30.0 Dysuria (principal); N39.0 Urinary tract infection, site not specified; N12 Tubulo-interstitial nephritis, not specified as acute or chronic | CPT/HCPCS: 87077; 87086; 87186 ==

== ENCOUNTER 2024-04-20 04:07 | Outpatient (CLI) | payer BC, SELFPAY ==
[2024-04-20 13:17] LABS: ALT 25 U/L (14-59); AST 17 U/L (15-37); Albumin 3.8 g/dL (3.4-5.0); Alkaline Phosphatase 80 U/L (46-116); Anion Gap 7.8 mmol/L (3-11); BUN 19 mg/dL (7-18); Bilirubin, Total 0.44 mg/dL (0.2-1.0); CO2 27.2 mmol/L (21.0-32.0); CREATININE 0.7 mg/dL (0.55-1.02); Calcium 9.4 mg/dL (8.5-10.1); Calculated LDL 122 mg/dL (<100); Chloride 106 mmol/L (98-107); Cholesterol 218 mg/dL (<200); Estimated GFR 97.72 (mL/min/1.73m2); Glucose 116 mg/dL (74-106); HDL Cholesterol 88 mg/dL (40-60); Potassium 4.1 mmol/L (3.5-5.1); Sodium 141 mmol/L (136-145); Total Protein 7.2 g/dL (6.4-8.2); Triglyceride 41 mg/dL (<150)
[2024-04-20 19:43] LABS: HBs Antibody, Quant <3.1 mIU/mL (See Note); Hep B Surface Ab Negative (See Note); Hepatitis B Core Antibody Negative (Negative); Hepatitis B Surface Antigen Negative (Negative)
== END 2024-04-20 04:08 | disposition home or self-care (01) ==
LOC: LOS 04:08
PROVIDERS: PCP Nurse Practitioner Family; Visit Provider Nurse Practitioner Family
DX: Z13.220 Encounter for screening for lipoid disorders (principal); Z11.59 Encounter for screening for other viral diseases
CPT/HCPCS: 36415; 80053; 80061; 86704; 86706; 87340

== ENCOUNTER 2024-04-24 10:40 | Outpatient (REF) | payer BC, SELFPAY ==
[2024-04-24 13:20] LABS: Creatinine,Urine 46.83 mg/dL; Sodium, Urine 67 mmol/L
[2024-04-24 13:24] LABS: CLEAVED CELLS 161 mmol/24h (40-220); Creatinine,24hr Ur 1.12 g/24hr (0.60-1.80); Total Volume 2400 ml
[2024-04-25 10:03] LABS: Magnesium 24hr Urine 103.2 mg/24hrs (12.0-192.0); Magnesium Random Urine 4.3 mg/dL (See Note); Timed Urine Volume 2400 mL; Uric Acid Urine 19.8 mg/dL (See Note); Uric Acid Urine 24hr 475 mg/24hrs (250-750)
[2024-04-25 10:16] LABS: Calcium Urine 24 hr 384 mg/24hr (100-300); Timed Urine Volume 2400 mL
[2024-04-26 10:22] LABS: Citrate Excretion, 24hr, U 766 mg/24 h; Urine Volume 2400 mL
[2024-04-26 15:09] LABS: Oxalate, U 0.31 mmol/24 h; Oxalate, U 27.3 mg/24 h (9.7 - 40.5); Urine Volume 2400 mL
[2024-04-28 09:35] LABS: Timed Urine Volume 2400; Urine Collection Period 24
== END 2024-04-24 10:41 | disposition home or self-care (01) ==
LOC: LBN 10:40
PROVIDERS: PCP Nurse Practitioner Family; Visit Provider Urology
DX: N20.0 Calculus of kidney (principal)
CPT/HCPCS: 82507; 83735; 81050; 82340; 82570; 83945; 84300; 84560

== ENCOUNTER 2024-05-04 00:12 | Outpatient (CLI) | payer BC, SELFPAY ==
--- NOTE | 2024-05-04 07:30 | DI.MAMMO_ITS ---
Exam(s) MAMMO SCREENING EXAM: MAMMO SCREENING CLINICAL HISTORY: screening TECHNIQUE: Mammograms were interpreted according to the usual protocol including computer analysis w [employer]ptive[employer] CAD system, tomosynthesis and C-view imaging. COMPARISON: 2014 through 2023 FINDINGS: The breasts are composed of heterogeneously dense fibroglandular densities, Breast Density category C . No suspicious masses or suspicious microcalcifications are seen. No skin thickening or abnormal axillary lymph nodes are seen. There has been no significant change from prior exams. IMPRESSION: BI-RADS Category 1, Negative mammogram. Yearly screening mammography is recommended. Breast Density Category C, heterogeneously Dense. The mammogram demonstrates the patient's breast tissue is dense. Dense breast tissue is very common a nd is not abnormal but dense breast tissue can make it harder to find cancer on a mammogram. Also, de nse breast tissue may increase breast cancer risk. This information about the result of the mammogram report was provided to the patient to raise their awareness. Use this report when you speak with the patient about their risks for breast cancer, which includes their family history. At that time, you may recommend additional screening tests (Ultrasound or MRI) as they might be useful based on their r isk. A negative radiographic report should not delay biopsy if a dominant or clinically suspicious mass is present. Up to ten percent of cancers are not identified on mammography. A negative report may reinforce clinical impression. Adenosis and dense breasts may obscure an underlying neoplasm. False positive reports average 6 to 10%.
== END 2024-05-04 00:32 ==
LOC: DI 00:12
PROVIDERS: PCP Nurse Practitioner Family; Visit Provider Obstetrics & Gynecology
DX: Z12.31 Encounter for screening mammogram for malignant neoplasm of breast (principal)
CPT/HCPCS: 77063; 77067

== ENCOUNTER 2025-02-15 10:51 | Outpatient (REF) | payer BC, SELFPAY ==
--- NOTE | 2025-02-15 10:00 | PAPFT_PTH ---
PATIENT: Joanna Norton LOC: JUAN U#:[id number] AGE/SX: 65/F ROOM: RE02/15/[address]: Zohra Wheeler MD : 1960 BED: DIS: 02/15/2025 SPEC #: [id number] RECD: 02/15/25 18:30 STATUS: VICKI REAle #: [id number] REHANA: 02/15/25 10:[address]: Zohra Wheeler DEPT: [facility] Cytology RECD BY: Santa Booker ENTERED: 02/15/25 18:30 SP TYPE: PAPFT SERGIO DR: Terry Phipps, BOBBY Tissues: 1 - CX/ENDOCX FOR PAP SMEARS Procedures: PAP THIN PREP/[facility] Screening HPV DNA PROBE Comments: [id number] (HPV 16 & 18/45)
== END 2025-02-15 10:52 | disposition home or self-care (01) ==
LOC: LBN 10:51
PROVIDERS: PCP Nurse Practitioner Family; Visit Provider Obstetrics & Gynecology
DX: Z12.4 Encounter for screening for malignant neoplasm of cervix (principal)
CPT/HCPCS: 88142; 87624